=== PATIENT | male | born 1945 | race Caucasian/White ===

== ENCOUNTER 2020-08-31 12:47 | Outpatient (CLI) | payer BC, SELFPAY ==
--- NOTE | 2020-08-31 13:18 | XR_ITS ---
WS: [id number] CHEST 2 VIEWS HISTORY: BILATERAL LEG EDEMA/AORTIC VALVE STENOSIS COMPARISON: 01/26/2015 Lungs: Mild hyperexpansion. Diffuse interstitial thickening over both lungs has progressed since the prior study. Biapical pleural thickening and scarring is stable. Focal area of atelectasis at the RIG HT costophrenic angle. Cardiac size: Normal. Mediastinum/Aorta: Moderate atherosclerosis aorta. Bones: Severe osteopenia. Thoracolumbar scoliosis. Significant increase in the kyphosis centered at t he thoracolumbar junction. Favor there are probably osteoporotic compression fractures but distinctio n of the vertebral bodies is very limited due to osteoporosis. XR/XR chest 2V* [id number] IMPRESSION: 1. Progression of interstitial thickening is probably related to mild amount o f fluid overload or progression of interstitial lung disease since 2014. 2. Subsegmental atelectasis or scar at the RIGHT costophrenic angle. 3. Severe osteopenia with compression fractures and thoracolumbar scoliosis.
[2020-08-31 13:56] LABS: Basophils # 0.1 10^3/uL (0.0-0.1); Basophils % 0.5 %; Eosinophils # 0.1 10^3/uL (0.0-0.8); Eosinophils % 0.6 %; Hematocrit 40.2 % (42.0-52.0); Hemoglobin 12.4 g/dL (11.7-16.6); Lymphocytes # 1.2 10^3/uL (0.8-4.8); Lymphocytes % 12.5 %; Mean Corpuscular HGB Conc 30.8 g/dL (30.0-36.0); Mean Corpuscular Hemoglobin 28.6 pg (28.0-34.0); Mean Corpuscular Volume 92.8 fL (80-94); Mean Platelet Volume 10.6 fL (7.4-10.4); Monocytes # 0.7 10^3/uL (0.2-0.9); Monocytes % 7.5 %; Neutrophils # 7.57 10^3/uL (1.8-7.7); Neutrophils % 78.6 %; Nucleated Red Blood Cells % 0 %; Platelet Count 239 10^3/cmm (130-400); Red Blood Count 4.33 10^6/uL (4.1-5.3); Red Cell Distribution Width 14.6 % (12.1-15.1); White Blood Count 9.6 10^3/uL (4.0-10.0)
[2020-08-31 14:25] LABS: Alanine Aminotransferase 12 U/L (0-41); Albumin Level 3.6 g/dL (3.5-5.2); Alkaline Phosphatase 145 IU/L (40-130); Blood Urea Nitrogen 12 mg/dL (8-23); Carbon Dioxide 24 mmol/L (22-29); Chloride 97 mmol/L (98-107); Globulin 3.8 g/dL (1.3-4.6); Glucose 79 mg/dL (65-115); NT Pro B Type Natriuretic Pept 1867 pg/mL (0-450); Osmolality Calculated 271 mOsm/kg (285-295); Sodium 131 mmol/L (136-145); Total Bilirubin 0.5 mg/dL (0.15-1.2); Total Protein 7.4 g/dL (6.6-8.7)
[2020-08-31 14:29] LABS: Anion Gap 14.3 (5-19); Aspartate Amino Transferase 31 U/L (0-40); Potassium 4.3 mmol/L (3.5-5.1)
== END 2020-08-31 12:48 | disposition home or self-care (01) ==
LOC: RAD 12:56
PROVIDERS: PCP Family Medicine; Visit Provider Nurse Practitioner Family
DX: R60.0 Localized edema (principal); I35.0 Nonrheumatic aortic (valve) stenosis; M85.88 Other specified disorders of bone density and structure, other site; S22.000A Wedge compression fracture of unspecified thoracic vertebra, initial encounter for closed fracture; X58.XXXA Exposure to other specified factors, initial encounter; M41.85 Other forms of scoliosis, thoracolumbar region; J98.11 Atelectasis
CPT/HCPCS: 36415; 71046; 80053; 83880; 85025

== ENCOUNTER 2020-09-12 13:57 | Outpatient (CLI) | payer MEDICARE, SELFPAY ==
--- NOTE | 2020-09-12 14:09 | USCV_ITS ---
Sam Escamilla Age: 74 Gender: M : 1945 Exam Date: 09/12/2020 14:40 Ordering Phys: Deysi Luciano Technologist: Kelsey Rousseau Exam Location: [facility] – [place] Indication: aortic valve stenosis BP: / HR: 80 Rhythm: Sinus Technical Quality: MEASUREMENTS (Male / Female) Normal Values 2D ECHO LV Diastolic Diameter PLAX 3.8 cm 4.2 - 5.9 / 3.9 - 5.3 cm LV Systolic Diameter PLAX 2.3 cm LV Chamber Size 3.2 cm IVS Diastolic Thickness 1.4 cm 0.6 - 1.0 / 0.6 - 0.9 cm IVS Systolic Thickness 1.4 cm LVPW Diastolic Thickness 2.3 cm 0.6 - 1.0 / 0.6 - 0.9 cm LVPW Systolic Thickness 2.5 cm RV Chamber Size 3.9 cm LVOT Diameter 2.0 cm LV Ejection Fraction 2D Teich 72.3 % LV Ejection Fraction MOD 2C 65.3 % LV Ejection Fraction 2C AL 65.5 % LA Diameter 3.4 cm LA Width 4.3 cm LA Height 4.6 cm RA Width 3.9 cm RA Height 3.9 cm M-MODE LV Diastolic Diameter MM 4.8 cm 4.2 - 5.9 / 3.9 - 5.3 cm LV Systolic Diameter MM 3.0 cm LV Ejection Fraction MM Teich 66.9 % IVS Diastolic Thickness MM 0.8 cm 0.6 - 1.0 / 0.6 - 0.9 cm IVS Systolic Thickness MM 1.0 cm LVPW Diastolic Thickness MM 1.2 cm 0.6 - 1.0 / 0.6 - 0.9 cm LVPW Systolic Thickness MM 1.3 cm Aortic Annulus Diameter 2.7 cm LA Ao Ratio MM 1.2 MV E Point Septal Separation 1.1 cm DOPPLER AV Peak Velocity 433.0 cm/s LVOT Peak Velocity 132.0 cm/s AV Area Cont Eq vti 1.2 cm squared AV Area Cont Eq pk 1.0 cm squared MV Area PHT 3.1 cm squared Mitral E to A Ratio 0.7 MV E' Velocity 79.0 cm/s Mitral E to MV E' Ratio 27.0 Mitral E to LV E' Lateral Ratio 22.2 Mitral E to LV E' Septal Ratio 35.1 TR Peak Velocity 306.3 cm/s TR Peak Gradient 37.5 mmHg TV Peak E Velocity 63.0 cm/s Right Atrial Pressure 3.0 mmHg Pulmonary Artery Systolic Pressu 40.5 mmHg PV Peak Velocity 106.0 cm/s RV Acceleration Time 0.0 s RV Ejection Time 0.3 s RV AcT/ET 0.1 FINDINGS Left Ventricle Normal left ventricular size and systolic function, EF 60 %. Moderate left ventricular hypertrophy. No regional wall motion abnormalities. Grade I/IV diastolic dysfunction (abnormal relaxation filling pattern), normal to mildly elevated filling pressures. Right Ventricle The right ventricle is normal in size and function. Right Atrium The right atrium is normal in size. Left Atrium Mildly increased left atrial size. Mitral Valve Thickened mitral valve. Heavy mitral annular calcification.moderate mitral valve regurgitation. Aortic Valve Aortic valve stenosis. [id number]-[id number] aortic valve regurgitation.Severe aortic valve stenosis with a valve area of 1.0 cm squared. Peak velocity of 4.33 m/s with a peak gradient of seventy-five and a mean gradient of 34 mmHg Tricuspid Valve Mild tricuspid valve regurgitation. Pulmonic Valve Pulmonic valve not well visualized. Pericardium Normal pericardium without effusion. Aorta Normal ascending aorta dimension. CONCLUSIONS Severe aortic valve stenosis with a valve area of 1.0 cm squared.( Peak velocity of 4.33 m/s with a peak gradient of seventy-five and a mean gradient of 34 mmHg. ) Mild to moderate aortic regurgitation Normal left ventricular size and systolic function, EF 60 %. Moderate left ventricular hypertrophy. No regional wall motion abnormalities. Grade I/IV diastolic dysfunction (abnormal relaxation filling pattern), normal to mildly elevated filling pressures. Mildly increased left atrial size. Thickened mitral valve. Heavy mitral annular calcification. Moderate mitral valve regurgitation. Mild tricuspid valve regurgitation. Estimated pulmonary artery peak systolic pressure of 41 mmHg There is no pericardial effusion. There are no intracardiac masses. Compared to the study from 2015-07-05, there is worsening of the aortic valve stenosis Dr Chastity Finch MD FAC (Electronically Signed) Final Date: 14 September 2020 11:02 S
== END 2020-09-12 13:58 | disposition home or self-care (01) ==
LOC: US 14:00
PROVIDERS: PCP Family Medicine; Visit Provider Nurse Practitioner Family
DX: R60.9 Edema, unspecified (principal); I08.3 Combined rheumatic disorders of mitral, aortic and tricuspid valves
CPT/HCPCS: 93306

== ENCOUNTER → 2020-10-08 12:04 | Outpatient (BNVA) | payer MEDICARE, SELFPAY | PROVIDERS: PCP Family Medicine; Visit Provider Internal Medicine Cardiovascular Disease | DX: I50.33 Acute on chronic diastolic (congestive) heart failure (principal); R06.02 Shortness of breath; M79.89 Other specified soft tissue disorders; I35.0 Nonrheumatic aortic (valve) stenosis; I50.9 Heart failure, unspecified; I50.32 Chronic diastolic (congestive) heart failure; I10 Essential (primary) hypertension | CPT/HCPCS: 80048; 83880 ==

== ENCOUNTER 2020-11-08 07:53 | Outpatient (CLI) | payer MEDICARE, SELFPAY ==
--- NOTE | 2020-11-08 08:04 | ECG_ITS ---
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 Interpretive Statements NAME OF STUDY: LEXISCAN SESTAMIBI STRESS TEST INDICATION: [Shortness of Breath] Procedure: At the baseline, the blood pressure was 127/61 mmHg with a heart rate of 86 bpm. The electrocardiogram showed normal sinus rhythm, left bundle branch block. The Lexiscan was infused over a period of 20 seconds. A total of 0.4 mg of Lexiscan was infused. The stress phase was continued for a total of 5 minutes. Heart rate was at the end of stress phase was 101 bpm and a blood pressure of 160/75 mmHg. The EKG at the peak infusion revealed since normal sinus rhythm with no significant changes. Sestamibi was injected 20 seconds after the Lexiscan infusion. Blood pressure at the end of recovery phase was 157/86 mmHg with a heart rate of 102 bpm. Conclusion: 1. Normal EKG response to Lexiscan infusion 2. No Lexiscan induced chest pain or cardiac arrhythmia. 3. Normal blood pressure and heart rate response. 4. Sestamibi/sestamibi perfusion scan pending; see separate report. Electronically Signed On 11-17-2020 12:23:17 CDT by Tim Hoffman M.D. [id number]
--- NOTE | 2020-11-08 08:05 | NMCV_ITS ---
NM percy perf SPECT r/s* [id number] Sam Escamilla Age: 74 Gender: M : 1945 Exam Date: 11/08/2020 10:26 Ordering Phys: Chastity Finch MD ([email or web address]) Technologist: JYOTSNA Escalante Exam Location: [facility] Indications: SHORTNESS OF BREATH STRESS TEST Please see separate stress test report in [facility] for full findings IMAGE PROTOCOL Rest/Stress 1 Lexiscan Day Radiopharmaceutical Dose (mCi) Administration Site Administered by Rest: Tc-99m 10.9 IV JYOTSNA Escalante Sestamibi Stress:Tc-99m 32.2 IV JYOTSNA Robin Sestamibi Rest: 08-Nov-2020 60 Discovery 630 Stress: 08-Nov-2020 30 Discovery 630 0.4mg Lexiscan. Supine position only as patient was unable to lay prone. SPECT RESULTS Technical Quality: Excellent Raw Data Analysis: Normal Image Corrections: No attenuation or motion correction applied Summed Stress Score: 8 Summed Rest Score: 5 Summed Difference Score: 6 PERFUSION FINDINGS Moderate areas of decreases uptake in the mid and apical inferior, mid inferolateral, apical lateral, LV apex and apical septal segments significant reversibility was noted in the mid inferolateral and apical lateral regions. FUNCTIONAL RESULTS (calculated via Gated SPECT) Stress Image LV EF (%): 66 Stress EDV (mL):94 TID: 0.97 Stress ESV (mL):32 FUNCTIONAL FINDINGS: Segmental wall motion analysis revealing no gross wall motion normalities. IMPRESSIONS 1. Myocardial perfusion imaging revealing a small to moderate area of reversible defect in the mid inferolateral and apical lateral region, suggestive of ischemia in the distribution of the left circumflex artery. All areas of persistent decreased tracer uptake was noted in the inferior and apical regions, suggestive of myocardial scarring in the distribution of the right coronary artery/distal left anterior descending artery 2. Normal LV ejection fraction 66%. 3. No significant wall motion normalities. 4. Normal LV volume No similar previous studies are available for comparison Dr Chastity Finch MD [facility] (Electronically Signed) Final Date: 12 Nov 2020 10:33 S
[2020-11-08 08:28] VITALS: BMI 18.6
[2020-11-08] MEDS: regadenoson 0.4 Mg/5 ml Syringe IVP (10:54)
[2020-11-08] MEDS: aminophylline 25 mg/mL SDV 10 mL IVP (11:05)
[2020-11-08 12:43] VITALS: BP 157/86; PULSE 93
== END 2020-11-08 07:54 | disposition home or self-care (01) ==
LOC: CDL 07:56
PROVIDERS: PCP Family Medicine; Visit Provider Internal Medicine Cardiovascular Disease
DX: R07.9 Chest pain, unspecified (principal)
CPT/HCPCS: 78452; 93017; 96374; A9500; J0280; J2785

== ENCOUNTER → 2020-12-11 15:00 | Outpatient (BNVA) | payer MEDICARE, SELFPAY | PROVIDERS: PCP Family Medicine; Visit Provider Internal Medicine Cardiovascular Disease | DX: R06.02 Shortness of breath (principal); M79.89 Other specified soft tissue disorders; I50.33 Acute on chronic diastolic (congestive) heart failure; I50.32 Chronic diastolic (congestive) heart failure; I50.9 Heart failure, unspecified | CPT/HCPCS: 80048; 83880 ==

== ENCOUNTER → 2021-06-13 15:04 | Outpatient (BNVA) | payer MEDICARE, SELFPAY | PROVIDERS: PCP Family Medicine; Visit Provider Internal Medicine Cardiovascular Disease | DX: I50.33 Acute on chronic diastolic (congestive) heart failure (principal); I35.0 Nonrheumatic aortic (valve) stenosis; R06.02 Shortness of breath | CPT/HCPCS: 80048; 83880 ==

== ENCOUNTER → 2021-12-12 13:49 | Outpatient (BNVA) | payer MEDICARE, SELFPAY | PROVIDERS: PCP Family Medicine; Visit Provider Internal Medicine Cardiovascular Disease | DX: I11.0 Hypertensive heart disease with heart failure (principal); I50.32 Chronic diastolic (congestive) heart failure; I35.0 Nonrheumatic aortic (valve) stenosis; F17.210 Nicotine dependence, cigarettes, uncomplicated; M79.89 Other specified soft tissue disorders | CPT/HCPCS: 99214 ==

== ENCOUNTER → 2022-05-26 11:46 | Outpatient (BNVA) | payer MEDICARE, SELFPAY | PROVIDERS: PCP Family Medicine; Visit Provider Family Medicine | DX: Z51.81 Encounter for therapeutic drug level monitoring (principal); I10 Essential (primary) hypertension; Z00.00 Encounter for general adult medical examination without abnormal findings; I50.9 Heart failure, unspecified; I35.0 Nonrheumatic aortic (valve) stenosis; Z13.220 Encounter for screening for lipoid disorders; R35.0 Frequency of micturition; Z12.5 Encounter for screening for malignant neoplasm of prostate | CPT/HCPCS: 80053; 80061; 85025; G0103 ==

== ENCOUNTER → 2022-06-12 13:28 | Outpatient (BNVA) | payer MEDICARE, SELFPAY | PROVIDERS: PCP Family Medicine; Visit Provider Nurse Practitioner Family | DX: I11.0 Hypertensive heart disease with heart failure (principal); I50.32 Chronic diastolic (congestive) heart failure; I35.0 Nonrheumatic aortic (valve) stenosis; F17.210 Nicotine dependence, cigarettes, uncomplicated | CPT/HCPCS: 99214 ==

== ENCOUNTER → 2022-12-30 10:56 | Outpatient (BNVA) | payer MEDICARE, SELFPAY | PROVIDERS: PCP Family Medicine; Visit Provider Specialist | DX: I10 Essential (primary) hypertension (principal); I35.0 Nonrheumatic aortic (valve) stenosis; F17.210 Nicotine dependence, cigarettes, uncomplicated | CPT/HCPCS: 99214 ==

== ENCOUNTER 2023-01-27 14:43 | Outpatient (CLI) | payer MEDICARE, SELFPAY ==
--- NOTE | 2023-01-27 15:15 | USCV_ITS ---
Sam Escamilla Age: 77 Gender: M : 1945 Exam Date: 01/27/2023 15:08 Ordering Phys: Mirela Sal MD ([email or web address]) Technologist: Exam Location: [facility] [place] Indication: aortic stenosis BP: 120 / 73 HR: 84 Rhythm: Sinus Technical Quality: Adequate MEASUREMENTS (Male / Female) Normal Values 2D ECHO LV Diastolic Diameter PLAX 4.9 cm 4.2 - 5.9 / 3.9 - 5.3 cm LV Systolic Diameter PLAX 2.5 cm IVS Diastolic Thickness 1.1 cm 0.6 - 1.0 / 0.6 - 0.9 cm IVS Systolic Thickness 2.0 cm LVPW Diastolic Thickness 1.1 cm 0.6 - 1.0 / 0.6 - 0.9 cm LVPW Systolic Thickness 1.5 cm LVOT Diameter 2.0 cm LV Ejection Fraction 2D Teich 80.3 % LV Ejection Fraction MOD 2C 72.8 % LV Ejection Fraction 2C AL 72.8 % LA Diameter 4.3 cm M-MODE Aortic Annulus Diameter 3.0 cm LA Ao Ratio MM 1.8 DOPPLER AV Peak Velocity 464.3 cm/s LVOT Peak Velocity 103.0 cm/s AV Area Cont Eq vti 0.7 cm squared AV Area Cont Eq pk 0.7 cm squared MV Area PHT 5.1 cm squared Mitral E to A Ratio 0.8 MV E' Velocity 90.5 cm/s Mitral E to MV E' Ratio 27.0 Mitral E to LV E' Lateral Ratio 20.8 Mitral E to LV E' Septal Ratio 38.4 TR Peak Velocity 214.0 cm/s TR Peak Gradient 18.3 mmHg TV Peak E Velocity 95.0 cm/s Right Atrial Pressure 3.0 mmHg Pulmonary Artery Systolic Pressu 21.3 mmHg RV Acceleration Time 0.1 s FINDINGS Left Ventricle Normal left ventricular size and systolic function, EF 73 %. Moderate left ventricular hypertrophy. No regional wall motion abnormalities. Grade I/IV diastolic dysfunction (abnormal relaxation filling pattern), normal to mildly elevated filling pressures. Right Ventricle The right ventricle is normal in size and function. Right Atrium The right atrium is normal in size. Left Atrium Mildly increased left atrial size. Mitral Valve Heavy mitral annular calcification Aortic Valve Moderate aortic valve calcification. evere aortic valve stenosis, mean gradient 44.8 mmHg, ZOE 0.66 cm squared. Mild aortic valve regurgitation. Tricuspid Valve Trace tricuspid valve regurgitation. Pulmonic Valve Thickened pulmonic valve. Pericardium Normal pericardium without effusion. Aorta Normal ascending aorta dimension. IVC Inferior vena cava not visualized. CONCLUSIONS Normal left ventricular size and systolic function, EF 73 %. Moderate left ventricular hypertrophy. No regional wall motion abnormalities. Grade I/IV diastolic dysfunction (abnormal relaxation filling pattern), normal to mildly elevated filling pressures. Severe aortic valve stenosis, mean gradient 44.8 mmHg, ZOE 0.66 cm squared. Mild aortic valve regurgitation. Moderate to heavy aortic valve calcification. Heavy mitral annular calcification Mildly increased left atrial size. Trace tricuspid valve regurgitation. Thickened pulmonic valve. There is no pericardial effusion. Compared to the study from 09/12/2020, there is worsening of the aortic valve stenosis Dr Chastity Finch MD [facility] (Electronically Signed) Final Date: 28 January 2023 21:56 S
== END 2023-01-27 14:44 | disposition home or self-care (01) ==
LOC: RAD 14:44
PROVIDERS: PCP Family Medicine; Visit Provider Specialist
DX: I10 Essential (primary) hypertension (principal); I08.3 Combined rheumatic disorders of mitral, aortic and tricuspid valves
CPT/HCPCS: 93306

== ENCOUNTER 2023-05-24 09:57 | Emergency (ER) | payer MEDICARE, SELFPAY ==
--- NOTE | 2023-05-24 09:59 | XRR_ITS ---
PROCEDURE INFORMATION: Exam: XR Left Knee Exam date and time: 05/24/2023 10:17 AM Age: 77 years old Clinical indication: Injury or trauma; Fall; Blunt trauma; Knee; Left TECHNIQUE: Imaging protocol: Radiologic exam of the left knee. Views: 3 views. COMPARISON: No relevant prior studies available. FINDINGS: Bones/joints: Alignment is normal. Joint spaces are preserved. No acute fracture. No joint effusion. Bones are diffusely osteopenic. Soft tissues: Visible soft tissues are unremarkable. Vasculature: Vascular calcification is present. XR/XR knee LT 3V* [id number] IMPRESSION: No acute findings.
--- NOTE | 2023-05-24 09:59 | XRR_ITS ---
PROCEDURE INFORMATION: Exam: XR Right Ankle Exam date and time: 05/24/2023 10:15 AM Age: 77 years old Clinical indication: Injury or trauma; Fall; Blunt trauma; Ankle; Right TECHNIQUE: Imaging protocol: Radiologic exam of the right ankle. Views: 3 or more views. COMPARISON: No relevant prior studies available. FINDINGS: Bones/joints: Alignment is normal. Joint spaces are preserved. No acute fracture. Bones are diffusely osteopenic. Soft tissues: Visible soft tissues are unremarkable. Vasculature: Vascular calcification is present. XR/XR ankle RT min 3V* [id number] IMPRESSION: No acute fracture.
[2023-05-24 10:05] VITALS: BP 145/53; PULSE 91; RESP 17; TEMP 36.9; O2SAT 96; BMI 21.2
--- NOTE | 2023-05-24 10:28 | XRR_ITS ---
PROCEDURE INFORMATION: Exam: XR Right Foot Exam date and time: 05/24/2023 10:30 AM Age: 77 years old Clinical indication: Injury or trauma; Fall; Blunt trauma; Foot; Left TECHNIQUE: Imaging protocol: Radiologic exam of the right foot. Views: 3 or more views. COMPARISON: CR (LOW EXM, ) 05/24/2023 10:15 AM FINDINGS: Bones/joints: Bones are diffusely osteopenic. Alignment is normal. Joint spaces are preserved. No acute fracture. Soft tissues: Visible soft tissues are unremarkable. Vasculature: Vascular calcification is present. XR/XR foot RT min 3V* [id number] IMPRESSION: No acute findings.
--- NOTE | 2023-05-24 10:28 | W.ED.EXTPRO ---
HPI - Extremity Problem General: Chief complaint: Extremity Injury, Lower Stated complaint: fall, right ankle left knee Time Seen by Provider: 05/24/23 10:10 Source: patient Mode of arrival: ambulatory Limitations: no limitations History of Present Illness: 77-year-old male states he had a ground-level fall on Thursday. He states he has had right ankle and foot pain along with left knee pain since the fall. States he had a hard time bearing weight on that right foot. Pain is laterally patient denies any other injuries. Associated symptoms: Deny chest pain, fever(s) or rash Review of Systems Const: Denies: fever(s), chills, body aches or change in appetite ENMT: Denies: throat pain or dental pain Card: Denies: chest pain Resp: Denies: dyspnea GI: Denies: abdominal pain, nausea, vomiting or diarrhea Musc: Reports: extremity pain; Denies: neck pain or back pain Skin/Breast: Denies: rash Neuro: Denies: headache(s) PFSH ED PFSH: Medical History Aortic stenosis Grade I diastolic dysfunction History of hypertension Hx of cardiac murmur Peripheral edema Skin cancer Surgical History No pertinent past surgical history Family History Sister CAD (coronary artery disease) Brother CAD (coronary artery disease) Diabetes Stroke Father Cancer Mother CAD (coronary artery disease) Denies family history of Clotting disorder Dementia Chronic kidney disease (CKD) Suicide Anesthesia complication Bleeding disorder Lung disease Social History Smoking and tobacco/nicotine status: current every day tobacco/nicotine user cigarettes Packs smoked per day: 1 Alcohol intake: never Substance/Drug Use: never Physical Exam Const: COMMON NORMALS: no acute distress, patient oriented x3 and healthy appearing HENMT: COMMON NORMALS: normocephalic and atraumatic HEAD & SCALP: normocephalic and atraumatic Neck/C-Spine: COMMON NORMALS: full ROM and supple Chest: COMMONS NORMALS: normal inspection of the chest Resp: COMMON NORMALS: normal respiratory effort Extremity: COMMON NORMALS: full ROM NARRATIVE EXTREMITY EXAM: Some tenderness over right lateral ankle and foot with contusion left knee slightly tender but has full range of motion and minimal pain with range of motion Neuro: COMMON NORMALS: patient oriented x3, moves all extremities and no focal motor deficits Psych: COMMON NORMALS: mental status grossly normal, Normal thought process present and cooperative THOUGHT PROCESS: Normal thought process present Skin: COMMON NORMALS: no rashes or lesions noted and no wounds GENERAL SKIN EXAM: no rashes or lesions noted Course Vital Signs: Vital signs: Vital Signs Temperature 98.4 F 05/24/23 10:05 Pulse Rate 91 05/24/23 10:05 Respiratory Rate 17 05/24/23 10:05 Blood Pressure 145/53 05/24/23 10:05 Pulse Oximetry 96 05/24/23 10:05 Oxygen Delivery Me thod Room Air 05/24/23 10:05 MDM - Extremity (Nontraumatic) Medical Decision Making Patient presents here with a right foot and ankle sprain from a fall his x-rays show no fractures he is well-appearing here he is stable for discharge he is to follow-up with PCP and return if worsening. Medical Records I reviewed the patient's medical records. Lab Data Radiology Impressions Ankle X-Ray 05/24/23 09:59 IMPRESSION: No acute fracture. Knee X-Ray 05/24/23 09:59 IMPRESSION: No acute findings. Foot X-Ray 05/24/23 10:28 IMPRESSION: No acute findings. All radiology interpretation(s) finalized by discharge Discharge Plan Discharge Patient Disposition: Home Clinical Impression: Ankle sprain and strain Condition: Stable Prescriptions: New Naprosyn 500 mg tablet 500 mg PO BID PRN (Reason: pain) Qty: 20 0RF No Action (DME) Wheels with 4 wheels and a seat See Rx Instructions .Route .MEDSUPPLY Qty: 1 0RF Rx Instructions: As directed potassium chloride 10 mEq tablet extended release 10 meq PO DAILY Qty: 30 5RF lisinopril 40 mg tablet 40 mg PO DAILY Qty: 90 3RF furosemide [Lasix] 20 mg tablet 20 mg PO DAILY Qty: 100 2RF Rx Instructions: *May take additional dose if more short of breath as needed Discharge Orders: Discharge ED (Routine); Ordered 05/24/23 Ordered By: Adelita Fallon Referrals: Andres Jordan MD [Primary Care Provider] - 1-3 days Discharge Diet: Advance as tolerated Discharge Activity: Resume usual activity Patient Instructions: Ankle Sprain (ED) Coding Level of Care Code ED 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
== END 2023-05-24 11:25 | disposition home or self-care (01) ==
PROVIDERS: Emergency Provider Emergency Medicine; PCP Family Medicine
DX: S93.401A Sprain of unspecified ligament of right ankle, initial encounter (principal); S96.911A Strain of unspecified muscle and tendon at ankle and foot level, right foot, initial encounter; F17.210 Nicotine dependence, cigarettes, uncomplicated; I10 Essential (primary) hypertension; W18.30XA Fall on same level, unspecified, initial encounter
CPT/HCPCS: 73562; 73610; 73630; 99284; E0114

== ENCOUNTER → 2023-05-31 13:00 | Outpatient (BNVA) | payer MEDICARE, SELFPAY | PROVIDERS: PCP Family Medicine; Visit Provider Emergency Medicine | DX: R39.9 Unspecified symptoms and signs involving the genitourinary system (principal); N39.0 Urinary tract infection, site not specified | CPT/HCPCS: 81000; 87077; 87086; 87184 ==

== ENCOUNTER → 2023-06-16 09:38 | Outpatient (BNVA) | payer MEDICARE, SELFPAY | PROVIDERS: PCP Family Medicine; Visit Provider Internal Medicine Cardiovascular Disease | DX: I35.0 Nonrheumatic aortic (valve) stenosis (principal); I11.0 Hypertensive heart disease with heart failure; I50.32 Chronic diastolic (congestive) heart failure; M79.89 Other specified soft tissue disorders; F17.210 Nicotine dependence, cigarettes, uncomplicated | CPT/HCPCS: 99214 ==

== ENCOUNTER → 2023-11-17 14:02 | Outpatient (BNVA) | payer MEDICARE, SELFPAY | PROVIDERS: PCP Family Medicine; Visit Provider Family Medicine | DX: Z51.81 Encounter for therapeutic drug level monitoring (principal) | CPT/HCPCS: 80053; 85025 ==

== ENCOUNTER 2023-11-23 12:41 | Inpatient (IN) | payer MEDICARE, SELFPAY ==
[2023-11-23] VITALS (17 sets, daily range): BP systolic 131–165; BP diastolic 56–109; PULSE 70–108; RESP 15–28; TEMP 36.3–36.8; O2SAT 18–100
--- NOTE | 2023-11-23 12:44 | XRR_ITS ---
PROCEDURE INFORMATION: Exam: XR Chest Exam date and time: 11/23/2023 12:52 PM Age: 77 years old Clinical indication: Shortness of breath; Additional info: SOB TECHNIQUE: Imaging protocol: Radiologic exam of the chest. Views: 1 view. COMPARISON: CR XR chest 2V* [id number] 08/31/2020 1:26 PM FINDINGS: Lungs: Low lung volumes with bibasilar atelectasis and/or airspace disease. Findings superimposed on underlying diffuse interstitial coarsening and borderline pulmonary vascular congestion which also accentuated in the setting. Pleural spaces: No pleural effusion or pneumothorax. Heart/Mediastinum: Cardiomediastinal contours accentuated by low lung volumes and AP technique. Bones/joints: No significant pathology. Other findings: Probable small right effusion with no definite left effusion seen. XR/XR chest 1V portable [id number] IMPRESSION: Low lung volumes with bibasilar atelectasis and/or airspace disease and possible small right effusion. PA and lateral projections recommended for further assessment if clinically feasible.
--- NOTE | 2023-11-23 13:20 | ECG_ITS ---
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 Measurements Intervals [place] Rate: 88 P: 84 MN: 212 QRS: 56 QRSD: 166 T: 110 QT: 441 QTc: 534 Interpretive Statements SINUS RHYTHM WITH FIRST DEGREE AV BLOCK POSSIBLE LEFT ATRIAL ENLARGEMENT [-0.1mV P-WAVE IN V1/V2] LEFT BUNDLE BRANCH BLOCK [120+ ms QRS DURATION, 80+ ms Q/S IN V1/V2, 85+ ms R IN I/aVL/V5/V6] No previous ECG available for comparison Electronically Signed On 11-23-2023 17:57:43 CDT by Chastity Finch M.D. [id number]
[2023-11-23 14:27] LABS: Basophils % 0.3 %; Eosinophils % 0.3 %; Lymphocytes # 1.1 10^3/uL (0.8-4.8); Lymphocytes % 8.9 %; Mean Corpuscular HGB Conc 31.2 g/dL (30-55); Mean Corpuscular Hemoglobin 28.6 pg (27-33); Mean Corpuscular Volume 91.5 fl (82-101); Mean Platelet Volume 10.9 fL (7.4-10.4); Monocytes # 0.7 10^3/uL (0.2-0.9); Monocytes % 5.5 %; Neutrophils % 84.6 %; Nucleated Red Blood Cells % 0 %; Platelet Count 185 10^3/cmm (157-399); Red Blood Count 4.48 10^6/uL (3.85-5.65); Red Cell Distribution Width 15.3 % (12.1-15.1); White Blood Count 11.93 10^3/uL (3.29-11.43)
[2023-11-23 14:51] LABS: INR 1.07 (0.8-1.2)
[2023-11-23 14:58] LABS: Alanine Aminotransferase 14 U/L (0-41); Albumin Level 3.5 g/dL (3.5-5.2); Alkaline Phosphatase 135 U/L (40-130); Anion Gap 11.6 (5-19); Aspartate Amino Transferase 24 U/L (0-40); Blood Urea Nitrogen 16 mg/dL (8-23); Calcium 8.7 mg/dL (8.5-10.5); Carbon Dioxide 35 mmol/L (22-29); Chloride 96 mmol/L (98-107); Creatinine Clr Calc Pharmacy 48.0364; Globulin 3.5 g/dL (1.3-4.6); Glucose 125 mg/dL (65-115); NT Pro B Type Natriuretic Pept 5943 pg/mL (0-450); Osmolality Calculated 293 mOsm/kg (285-295); Sodium 140 mmol/L (136-145); Total Bilirubin 0.7 mg/dL (0.15-1.2)
[2023-11-23 15:00] LABS: Potassium 2.6 mmol/L (3.5-5.1)
--- NOTE | 2023-11-23 15:39 | XRR_ITS ---
PROCEDURE INFORMATION: Exam: XR Chest Exam date and time: 11/23/2023 3:50 PM Age: 77 years old Clinical indication: Shortness of breath; Additional info: SOB TECHNIQUE: Imaging protocol: Radiologic exam of the chest. Views: 2 views. COMPARISON: CR XR chest 1V portable [id number] 11/23/2023 12:52 PM FINDINGS: Lungs: Compared with the earlier in the same day, low lung volumes again noted. Areas of basilar atelectasis and/or airspace disease again noted. There is mild pulmonary vascular congestion. Pleural spaces: Small bilateral pleural effusions now more clearly visualized. Heart/Mediastinum: Heart is enlarged though accentuated by incomplete pulmonary expansion. Moderate hiatal hernia. Bones/joints: Bones are osteopenic and there are numerous thoracolumbar vertebral body compression fractures with assessment limited by technique and osteopenia. XR/XR chest 2V* [id number] IMPRESSION: 1. Low lung volumes findings suggest at least partial component of congestive failure and/or fluid overload accentuated by incomplete pulmonary expansion. Additional nonspecific areas of bibasilar atelectasis and/or airspace disease. 2. Limited assessment of multilevel thoracolumbar vertebral body compression fractures given technique and osteopenia. CT or MRI could be performed for more detailed assessment if clinically warranted.
--- NOTE | 2023-11-23 15:44 | ED_ITS ---
HPI - General Adult 2 General: Chief complaint: General Medical Stated complaint: swelling leg, sob Time Seen by Provider: 11/23/23 15:37 Source: patient Mode of arrival: ambulatory Limitations: no limitations History of Present Illness: W 7-year-old male has history of congestive heart failure he states he had increased edema to his lower extremities he states that his provider did increase his Lasix to 40 mg from 26 been taking but still had fluid buildup denies any fever denies any chest pain denies any severe shortness of breath. Associated symptoms: Deny chest pain, dyspnea, headache(s), nausea, rash or vomiting Review of Systems 2 Const: Denies: fever(s), chills, body aches or change in appetite ENMT: Denies: throat pain or dental pain Card: Denies: chest pain Resp: Denies: dyspnea GI: Denies: abdominal pain, nausea, vomiting or diarrhea Musc: Reports: extremity swelling; Denies: neck pain or back pain Skin/Breast: Denies: rash Neuro: Denies: headache(s) PFSH ED 2 PFSH: Medical History Peripheral edema Aortic stenosis Severe - Patient has declined valve replacement History of hypertension Grade I diastolic dysfunction Hx of cardiac murmur Skin cancer Surgical History No pertinent past surgical history Family History Sister CAD (coronary artery disease) Brother CAD (coronary artery disease) Diabetes Stroke Father Cancer Mother CAD (coronary artery disease) Denies family history of Clotting disorder Dementia Chronic kidney disease (CKD) Suicide Anesthesia complication Bleeding disorder Lung disease Social History Smoking and tobacco/nicotine status: current every day tobacco/nicotine user cigarettes Packs smoked per day: 1 Alcohol intake: never Substance/Drug Use: never Physical Exam 2 Const: COMMON NORMALS: patient oriented x3 HENMT: COMMON NORMALS: normocephalic and atraumatic HEAD & SCALP: n ormocephalic and atraumatic Eye: COMMON NORMALS: Equal, round and reactive pupils present and EOMs intact bilaterally PUPIL: Yes Equal, round and reactive pupils present Neck/C-Spine: COMMON NORMALS: full ROM and supple Chest: COMMONS NORMALS: normal inspection of the chest and normal palpation of entire chest wall Resp: COMMON NORMALS: normal respiratory effort, No retractions, No use of accessory muscles and clear to auscultation bilaterally AUSCULTATION: clear to auscultation bilaterally Cardio: COMMON NORMALS: regular rate, regular rhythm and No murmurs present (Cardio) RATE: regular rate RHYTHM: regular rhythm GI: COMMON NORMALS: Normal to inspection, nondistended, normoactive bowel sounds present, Soft to palpation, non-tender and no masses PALPATION: Yes Soft to palpation Extremity: COMMON NORMALS: full ROM NARRATIVE EXTREMITY EXAM: 2+ edema to bilateral ext Neuro: COMMON NORMALS: patient oriented x3, moves all extremities and no focal motor deficits Psych: COMMON NORMALS: mental status grossly normal, Normal thought process present and cooperative THOUGHT PROCESS: Normal thought process present Skin: COMMON NORMALS: no rashes or lesions noted and no wounds GENERAL SKIN EXAM: no rashes or lesions noted Course 2 Vital Signs: Vital signs: Vital Signs Temperature 97.3 F L 11/23/23 13:14 Pulse Rate 95 11/23/23 15:57 Respiratory Rate 16 11/23/23 15:57 Blood Pressure 131/102 11/23/23 15:57 Pulse Oximetry 100 11/23/23 15:57 Oxygen Delivery Me thod Room Air 11/23/23 15:57 MDM - General Adult Medical Decision Making Patient presents here with history of CHF with increased lower extremity edema he does have an elevated BNP here from his baseline he is hypokalemic as well likely from the increase in his Lasix dose I spoke to the hospitalist will admit for his CHF and hypokalemia Lab Data 11/23/23 14:20 11/23/23 14:20 Radiology Impressions Chest X-Ray 11/23/23 15:39 IMPRESSION: 1. Low lung volumes findings suggest at least partial component of congestive failure and/or fluid overload accentuated by incomplete pulmonary expansion. Additional nonspecific areas of bibasilar atelectasis and/or airspace disease. 2. Limited assessment of multilevel thoracolumbar vertebral body compression fractures given technique and osteopenia. CT or MRI could be performed for more detailed assessment if clinically warranted. Laboratory Results WBC 11.93 10^3/uL (3.29-11.43) H 11/23/23 14:20 RBC 4.48 10^6/uL (3.85-5.65) 11/23/23 14:20 Hgb 12.80 g/dL (11.27-16.99) 11/23/23 14:20 Hct 41.0 % (37-53) 11/23/23 14:20 MCV 91.5 fl (82-101) 11/23/23 14:20 MCH 28.6 pg (27-33) 11/23/23 14:20 MCHC 31.2 g/dL (30-55) 11/23/23 14:20 RDW 15.3 % (12.1-15.1) H 11/23/23 14:20 Plt Count 185 10^3/cmm (157-399) 11/23/23 14:20 MPV 10.9 fL (7.4-10.4) H 11/23/23 14:20 Neut % (Auto) 84.6 % 11/23/23 14:20 Lymph % (Auto) 8.9 % 11/23/23 14:20 [place] % (Auto) 5.5 % 11/23/23 14:20 Eos % (Auto) 0.3 % 11/23/23 14:20 Baso % (Auto) 0.3 % 11/23/23 14:20 Neut # (Auto) 10.10 10^3/uL (1.8-7.7) H 11/23/23 14:20 Lymph # (Auto) 1.1 10^3/uL (0.8-4.8) 11/23/23 14:20 [place] # (Auto) 0.7 10^3/uL (0.2-0.9) 11/23/23 14:20 Eos # (Auto) 0.0 10^3/uL (0.0-0.8) 11/23/23 14:20 Baso # (Auto) 0.0 10^3/uL (0.0-0.1) 11/23/23 14:20 Nucleated RBC % (auto) 0 % 11/23/23 14:20 Nucleated RBCs # 0.0 /100WBC 11/23/23 14:20 PT 14.20 SECONDS (12.1-14.9) 11/23/23 14:20 INR 1.07 (0.8-1.2) 11/23/23 14:20 Sodium 140 mmol/L (136-145) 11/23/23 14:20 Potassium 2.6 mmol/L (3.5-5.1) L* 11/23/23 14:20 Chloride 96 mmol/L (98-107) L 11/23/23 14:20 Carbon Dioxide 35 mmol/L (22-29) H 11/23/23 14:20 Anion Gap 11.6 (5-19) 11/23/23 14:20 BUN 16 mg/dL (8-23) 11/23/23 14:20 Creatinine 0.7 mg/dL (0.7-1.2) 11/23/23 14:20 GFR Calculation Not Reportable 11/23/23 14:20 Glucose 125 mg/dL (65-115) H 11/23/23 14:20 Calculated Osmolality 293 mOsm/kg (285-295) 11/23/23 14:20 Calcium 8.7 mg/dL (8.5-10.5) 11/23/23 14:20 Magnesium 2.0 mg/dL (1.7-2.3) 11/23/23 14:20 Total Bilirubin 0.7 mg/dL (0.15-1.2) 11/23/23 14:20 AST 24 U/L (0-40) 11/23/23 14:20 ALT 14 U/L (0-41) 11/23/23 14:20 Alkaline Phosphatase 135 U/L (40-130) H 11/23/23 14:20 NT-Pro-B Natriuret Pep 5943 pg/mL (0-450) H 11/23/23 14:20 Total Protein 7.0 g/dL (6.6-8.7) 11/23/23 14:20 Albumin 3.5 g/dL (3.5-5.2) 11/23/23 14:20 Globulin 3.5 g/dL (1.3-4.6) 11/23/23 14:20 All radiology interpretation(s) finalized by discharge Discharge Plan Discharge Patient Disposition: Admitted As Inpatient Clinical Impression: Leg swelling, CHF (congestive heart failure), Hypokalemia Condition: Stable Prescriptions: No Action furosemide 40 mg tablet See Rx Instructions .ROUTE .COMPLEX Qty: 90 3RF Dose Instruction: TAKE 1 TABLET BY MOUTH DAILY *MAY TAKE ADDITIONAL DOSE IF MORE SHORT OF BREATH NEEDED Rx Instructions: TAKE 1 TABLET BY MOUTH DAILY *MAY TAKE ADDITIONAL DOSE IF MORE SHORT OF BREATH NEEDED (DME) Wheels with 4 wheels and a seat See Rx Instructions .Route .MEDSUPPLY Qty: 1 0RF Rx Instructions: As directed potassium chloride 10 mEq tablet extended release 10 meq PO DAILY Qty: 30 5RF lisinopril 40 mg tablet See Rx Instructions .ROUTE .COMPLEX Qty: 90 3RF Dose Instruction: TAKE 1 TABLET BY MOUTH EVERY DAY Rx Instructions: TAKE 1 TABLET BY MOUTH EVERY DAY Naprosyn 500 mg tablet 500 mg PO BID PRN (Reason: pain) Qty: 20 0RF Referrals: Andres Jordan MD [Primary Care Provider] - Coding Level of Care Code ED Smocker for Korina Miller
[2023-11-23] MEDS: potassium chloride ER 20 mEq Tablet 60 MEQ PO (16:04)
[2023-11-23] MEDS: nicotine 21 mg Patch 1 PATCH TRANSDERMA (16:05)
[2023-11-23] MEDS: potassium chloride ER 20 mEq Tablet 80 MEQ PO (17:33)
--- NOTE | 2023-11-23 17:39 | P.HP_ITS ---
Providers/Chief Complaint 2 Primary Care Provider: Andres Jordan MD Chief Complaint: swelling leg, sob History of Present Illness Sam Escamilla is a 77 year old male with past medical history of hypertension, severe aortic stenosis, diastolic heart failure presented to the ER because of worsening swelling in his lower limbs along with weakness and difficulty in breathing associated with orthopnea increasing over the last 2 weeks at home. As per the patient his diuretic was doubled to 40 mg daily as per his primary care provider within the last 1 week without any help. In the ER he was found to have potassium of 2.6 hence decision was made to admit. Examination patient sitting up in bed with difficulty in laying down because of difficulty in breathing maintain saturation reported oxygen supplementation. Denies any nausea vomiting, headache. Does complain of mild chest discomfort around 3 to 4 weeks ago. Denies any difficulty in appetite, palpitations. Review of Systems 2 General: Reports: 10 or more systems reviewed and unremarkable except in HPI and below Const: Denies: fever(s), chills, body aches, change in appetite, change in weight, malaise, night sweats, diaphoresis, change in sleep pattern, daytime sleepiness or snoring Eyes: Denies: change in vision, blurry vision, photophobia, eye discomfort or eye discharge ENMT: Denies: throat pain, enlarged tonsils, hoarseness, mouth pain, oral sores, dry mouth, tinnitus, nasal congestion or post nasal drip Card: Denies: chest pain, palpitations, irregular heart rhythm, edema, swelling of feet/ankles, lightheadedness, syncope, pre-syncope, dyspnea on exertion, orthopnea, leg pain with exertion or acrocyanosis Resp: Denies: dyspnea, productive cough, non-productive cough, wheezing, stridor, pain on inspiration, change in phlegm color, hemoptysis or chest congestion GI: Denies: abdominal pain, nausea, vomiting, hematemesis, coffee ground emesis, dysphagia, heartburn, diarrhea, constipation, bloating, GI cramping, change in bowel habits, pain on defecation, hematochezia or melena : Denies: flank pain, difficulty urinating, dysuria, urinary frequency, urinary urgency, urinary hesitancy, urinary dribbling, difficulty starting urination, change in urine stream, nocturia or hematuria Musc: Denies: neck pain, back pain, extremity pain, joint pain, joint swelling, joint redness, joint stiffness or limited range of motion Neuro: Denies: headache(s), numbness in extremities, weakness in extremities, sensory changes, lack of coordination, difficulty walking, frequent falls, dizziness, vertigo, confusion, Slurred speech present, difficulty communicating thoughts or seizure-like activity Psych: Denies: anxiety, depression, mood swings, panic attacks, hopelessness or irritability Endo: Denies: polyuria, polydipsia, tired all the time, cold intolerance, excessive sweating, flushing or heat intolerance [place]/Lymph: Denies: easy bruising or easy bleeding All/Imm: Denies: tongue swelling, facial swelling or acute wheezing Medications/Allergies Home Medications Medication Instructions Recorded Confirmed Last Taken Type potassium chloride 10 mEq 10 meq PO DAILY #30 tabs 10/09/20 11/17/23 Unknown Rx tablet,extended release Wheels with 4 wheels and a seat #1 ea 05/26/22 11/17/23 Unknown Rx naproxen 500 mg tablet (Naprosyn) 500 mg PO BID PRN pain #20 tabs 05/24/23 11/17/23 Unknown Rx lisinopril 40 mg tablet See Rx Instructions .Route 09/30/23 11/17/23 Unknown Rx .COMPLEX #90 tabs furosemide 40 mg tablet See Rx Instructions .Route 11/17/23 11/17/23 Unknown Rx .COMPLEX #90 tabs Allergies Allergy/AdvReac Type Severity Reaction Status Date / Time No Known Allergies Allergy Verified 06/16/23 10:05 PFSH Acute 2 PFSH: Medical History Peripheral edema Aortic stenosis Severe - Patient has declined valve replacement History of hypertension Grade I diastolic dysfunction Hx of cardiac murmur Skin cancer Surgical History No pertinent past surgical history Family History Sister CAD (coronary artery disease) Brother CAD (coronary artery disease) Diabetes Stroke Father Cancer Mother CAD (coronary artery disease) Denies family history of Clotting disorder Dementia Chronic kidney disease (CKD) Suicide Anesthesia complication Bleeding disorder Lung disease Social History Smoking and tobacco/nicotine status: current every day tobacco/nicotine user cigarettes Packs smoked per day: 1 Alcohol intake: never Substance/Drug Use: never Vitals/I&O/Wt Last Vital Signs Temp 97.3 F L 11/23/23 13:14 Pulse 91 11/23/23 17:00 Resp 16 11/23/23 15:57 BP 136/76 11/23/23 17:00 Pulse Ox 93 11/23/23 17:00 O2 Del Method Room Air 11/23/23 15:57 Weight last 48 hrs Weight 45.359 kg Physical Exam 2 Narrative: General: No acute distress, AO x3 HEENT: PERRLA, pupils bilaterally equal and reactive Chest: Normal vesicular breath sounds, no added sounds, equal good air entry bilaterally CVS: S1-S2 regular, ejection systolic murmur present at aortic region radiating to carotids 2/6, pansystolic murmur in pericardium, S3 gallop Abdomen: Soft, nontender, no organomegaly, bowel sounds present Neuro: No focal deficits, no facial deformity, AO x3, power 5/5 in all limbs. Extremity: 3+ pitting edema bilaterally to the knees Data 11/23/23 14:20 11/23/23 14:20 A&P Assessment and plan (1) CHF (congestive heart failure): (2) Severe aortic valve stenosis: (3) Leg swelling: (4) Hypokalemia: Plan Lower limb swelling along with orthopnea most likely in setting of worsening congestive heart failure. History of diastolic heart failure in the past with severe aortic stenosis on last echocardiogram from 02/01. Repeat echocardiogram. IV Lasix at 40 mg daily. Strict input charting, daily weights. Fluid restriction of 1500 cc. Lower limb Doppler to rule out DVT. Monitor electrolytes. Currently having severe hypokalemia. Replaced 60 mg in the ER. Additionally repeat 80 meq more. Repeat potassium level in evening. Hypertension: Goal blood pressure less than 140/90 mmHg. For now continue with home dose of lisinopril. Uptitrate as for goal blood pressure. Cycle troponin. Check TSH CODE STATUS: Discussed in detail with patient at bedside. Niece will be the DPOA. DNR/DNI. Cardiac diet Snyder catheterization. Heparin 5000 every 12 hourly for DVT prophylaxis Protonix OPD prophylaxis Attestations 2 Medical Necessity Statement*: Admission for more than 2 midnights for management of orthopnea, lower limb swelling in setting of congestive heart failure in a patient with severe aortic stenosis along with severe hypokalemia Diagnoses CHF (congestive heart failure) I50.9 Severe aortic valve stenosis I35.0 Leg swelling M79.89 Hypokalemia E87.6
[2023-11-23] MEDS: enoxaparin 40 mg/0.4 mL Syringe SUBCUT (18:32)
[2023-11-23 18:34] LABS: Procalcitonin 0.04 ng/mL (0-0.5)
[2023-11-23] MEDS: FUROsemide 10 mg/mL SDV 4mL 40 MG IVP (19:57)
--- NOTE | 2023-11-23 19:59 | PC.NURSE ---
placed pt on nc 2 l due to pt 02 sat dipping into high 80s while sleeping
[2023-11-23 20:57] LABS: Iron 44 ug/dL (59-158); Percent Saturation 12.3 % (20-50); Thyroid Stimulating Hormone 1.85 uIU/mL (0.27-4.20); Total Iron Binding Capacity 357 mcg/dl; Unsaturated Iron Binding 313 ug/dL (112-347); Vitamin B12 610 pg/mL (232-1245)
[2023-11-23 22:57] LABS: Troponin(5th) Baseline 69 ng/L (0-15)
[2023-11-24] VITALS (10 sets, daily range): BP systolic 95–148; BP diastolic 51–73; PULSE 66–107; RESP 11–21; TEMP 36.4–36.9; O2SAT 94–100
[2023-11-24 00:02] LABS: Add Urine Microscopic? YES; Bilirubin Urine Neg (Negative); Blood Urine Neg (Negative); Glucose Urine UA Norm (Normal); Ketones Urine Negative (Negative); Leukocyte Esterase Urine 1+ (Negative); Nitrate Urine Negative (Negative); Protein Urine Neg (Negative); Sulfosalicylic Acid Urine Negative (Negative); Urine Appearance Clear (CLEAR); Urine Color Light yellow (Yellow); Urobilinogen Urine 1 mg/dL (Negative); pH Urine 8 (5-7)
[2023-11-24 00:17] LABS: Add Urine Culture? No; Bacteria Urine TRACE /hpf; Mucus Urine 1+ /hpf; RBC Urine 0-4 /hpf (0-2); WBC Urine 0-4 /hpf (0-5)
--- NOTE | 2023-11-24 00:30 | ECG_ITS ---
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 Measurements Intervals [place] Rate: 89 P: 80 MO: 152 QRS: -35 QRSD: 144 T: 85 QT: 418 QTc: 510 Interpretive Statements SINUS RHYTHM WITH OCCASIONAL SUPRAVENTRICULAR PREMATURE COMPLEXES POSSIBLE LEFT ATRIAL ENLARGEMENT [-0.1mV P-WAVE IN V1/V2] LEFT AXIS DEVIATION [QRS AXIS < -30] LEFT BUNDLE BRANCH BLOCK [120+ ms QRS DURATION, 80+ ms Q/S IN V1/V2, 85+ ms R IN I/aVL/V5/V6] Compared to ECG 11/23/2023 13:20:48 Left-axis deviation now present First degree AV block no longer present Electronically Signed On 11-24-2023 17:52:17 CDT by Tim Hoffman M.D. [email or web address]
[2023-11-24 01:24] LABS: Troponin 5 2HR 66.26 ng/L (0-15)
[2023-11-24 01:36] LABS: Troponin 5 2HR Delta -2.74 ABS# (0-10)
[2023-11-24 04:24] LABS: Basophils % 0.1 %; Hematocrit 38.9 % (37-53); Lymphocytes % 9.3 %; Mean Corpuscular HGB Conc 30.8 g/dL (30-55); Mean Corpuscular Hemoglobin 28.1 pg (27-33); Mean Corpuscular Volume 91.1 fl (82-101); Mean Platelet Volume 11.1 fL (7.4-10.4); Monocytes # 0.7 10^3/uL (0.2-0.9); Monocytes % 6.8 %; Neutrophils # 8.92 10^3/uL (1.8-7.7); Neutrophils % 83.3 %; Nucleated Red Blood Cells % 0 %; Platelet Count 179 10^3/cmm (157-399); Red Blood Count 4.27 10^6/uL (3.85-5.65); Red Cell Distribution Width 15.1 % (12.1-15.1); White Blood Count 10.71 10^3/uL (3.29-11.43)
--- NOTE | 2023-11-24 04:30 | ECG_ITS ---
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 Measurements Intervals [place] Rate: 94 P: 143 [place]: 178 QRS: -12 QRSD: 146 T: 143 QT: 413 QTc: 517 Interpretive Statements ECTOPIC ATRIAL RHYTHM LEFT ATRIAL ENLARGEMENT [-0.15mV P-WAVE IN V1/V2] LEFT BUNDLE BRANCH BLOCK [120+ ms QRS DURATION, 80+ ms Q/S IN V1/V2, 85+ ms R IN I/aVL/V5/V6] PROBABLE LATERAL MYOCARDIAL INFARCTION , OF INDETERMINATE AGE [35 ms Q WAVE IN I/aVL/V5/V6] Compared to ECG 11/24/2023 01:40:40 Ectopic atrial rhythm now present Myocardial infarct finding now present Sinus rhythm no longer present Left-axis deviation no longer present Electronically Signed On 11-24-2023 17:51:54 CDT by iTm Hoffman M.D. [id number]
[2023-11-24 04:47] LABS: Alanine Aminotransferase 16 U/L (0-41); Albumin Level 3.3 g/dL (3.5-5.2); Alkaline Phosphatase 129 U/L (40-130); Anion Gap 13.6 (5-19); Aspartate Amino Transferase 26 U/L (0-40); Blood Urea Nitrogen 16 mg/dL (8-23); Calcium 8.8 mg/dL (8.5-10.5); Carbon Dioxide 35 mmol/L (22-29); Chloride 99 mmol/L (98-107); Creatinine Clr Calc Pharmacy 48.0364; Globulin 3.2 g/dL (1.3-4.6); Glucose 117 mg/dL (65-115); Osmolality Calculated 298 mOsm/kg (285-295); Phosphorus 3.2 mg/dL (2.5-4.5); Potassium 4.6 mmol/L (3.5-5.1); Sodium 143 mmol/L (136-145); Total Bilirubin 0.8 mg/dL (0.15-1.2); Total Protein 6.5 g/dL (6.6-8.7)
[2023-11-24 04:48] LABS: Troponin 5 6HR 70.66 ng/L (0-15); Troponin 5 6HR Delta 1.66 ng/L (0-12)
[2023-11-24 04:52] LABS: Chol HDL Ratio 3.28 mg/dL (1.0-5.00); Cholesterol 154 mg/dL (0-200); HDL Cholesterol 47 mg/dL (60-100); LDL Cholesterol Calculated 91 mg/dL (50-129); LDL HDL Ratio 1.94 RATIO (0.00-3.22); Triglycerides 79 mg/dL (0-150)
[2023-11-24 04:59] LABS: Estmated Average Glucose 108; Hemoglobin A1C 5.4 % (4.0-6.0)
[2023-11-24 05:05] LABS: Folate Level 5.9 ng/mL (4.5-32.2)
[2023-11-24] MEDS: FUROsemide 10 mg/mL SDV 4mL 40 MG IVP (08:12)
[2023-11-24] MEDS: lisinopril 20 mg Tablet 40 MG PO (08:12)
--- NOTE | 2023-11-24 08:19 | USCV_ITS ---
Sam Escamilla Age: 77 Gender: M : 1945 Exam Date: 11/24/2023 11:44 Ordering Phys: Pierre Cabrera MD Technologist: [place] [facility] [place]: swelling PROCEDURES: The venous duplex Doppler examination of both lower extremities was performed in the standard fashion. Bilaterally, the common femoral, superficial femoral, profunda femoral, popliteal, posterior tibial, greater saphenous veins, and the peroneal trunk were identified and interrogated in the standard fashion. These veins were found to be easily compressible with spontaneous blood flow. No evidence of insufficiency or thrombus noted. FINDINGS: no dvt CONCLUSIONS No evidence of right lower extremity DVT. No evidence of left lower extremity DVT. Ellis Cazares MD (Electronically Signed) Final Date: 24 Nov 2023 13:03 S
[2023-11-24] MEDS: acetaZOLAMIDE 250 mg Tablet 500 MG PO (09:30)
[2023-11-24 09:56] LABS: D Dimer 1.89 ug/mLFEU (0-0.59)
--- NOTE | 2023-11-24 09:58 | PC.CHAP ---
Pastoral Care Encounter/Spiritual Assessment Type of Contact [] Declined plain clothes police officer visit [] Patient/Family/Request visit [] Outpatient visit [] Follow-up visit [] Physician referral [] Code/Alert [] Routine visit [] Staff referral [] Actively dying [] Patient sleeping [] Family support [] [] Out of room [] Palliative care [] [x] Receiving care in room [] Pre-surgical visit [] Trauma [] Long length of stay [] ICU visit [] Other: Relational/Emotional Strength [] Patient feels connected with others/family/visitors/staff [] Distress [] Loneliness/isolation [] Abandonment Spirituality of Patient [] Person of Elise [] Attends Rastafari of their Elise [] Believes in Prayer [] Reads Bible or Adventism materials [] There are Spiritual issues to be addressed Estate Tax Examiner Interventions [] Prayer [] Active listening [] Non-anxious presence [] Spiritual/emotional support [] Crisis/trauma care [] Spiritual counseling [] Bereavement support [] Provided bereavement packet [] Provided Bible/devotional materials [] Provided toy/stuffed animal, coloring book to patient or family member [] Provided Communion [] Anointing/[place] [] Salvation [] Completed spiritual assessment [] Other: Impact on Illness or Injury [] Angry [] Fearful [] Anxious [] Often cries [] Exhaustion [] Unable to work [] Unable to attend taoist [] Unable to walk/stand [] Unable to read [] Unable to drive [] Unable to eat/drink [] Unable to sleep [] Unable to be with family [] Patient intubated [] Other: Summary Time spent with patient
--- NOTE | 2023-11-24 14:54 | P.PN_ITS ---
Subjective 2 Subjective: No acute vents overnight. Seen with family at bedside. Today morning patient is on 2 L oxygen supplementation saturating more than 97%. States he is feeling better. Denies any nausea, ting, headache. Documented urine output of around 900 cc overnight. Vitals/I&O/Wt Last Vital Signs Temp 98.0 F 11/24/23 11:39 Pulse 96 11/24/23 11:39 Resp 21 H 11/24/23 11:39 BP 102/55 11/24/23 11:39 Pulse Ox 99 11/24/23 11:39 O2 Del Method Nasal Cannula 11/24/23 11:39 O2 Flow Rate 2 11/24/23 09:30 11/23/23 11/24/23 11/24/23 22:59 06:59 14:59 Intake Total 600 / 600 Output Total 525 / 525 400 / 925 Balance -525 / -525 -400 / -925 600 / 600 Weight last 48 hrs Weight 50.984 kg Weight 45.359 kg Physical Exam 2 Narrative: General: No acute distress, AO x3 HEENT: PERRLA, pupils bilaterally equal and reactive Chest: Normal vesicular breath sounds, no added sounds, equal good air entry bilaterally CVS: S1-S2 regular, ejection systolic murmur present at aortic region radiating to carotids 2/6, pansystolic murmur in pericardium, S3 gallop Abdomen: Soft, nontender, no organomegaly, bowel sounds present Neuro: No focal deficits, no facial deformity, AO x3, power 5/5 in all limbs. Extremity: 3+ pitting edema bilaterally to the knees Urinary Catheter Management: Snyder: Cath Placed During This Visit: yes Reason for Continuing Indwelling Catheter: Other Urinary Catheter Date of Insertion: 11/23/23 Urinary Catheter Time of Insertion: 20:23 Data 11/24/23 04:04 11/24/23 04:04 A&P Assessment and plan (1) CHF (congestive heart failure): (2) Severe aortic valve stenosis: (3) Leg swelling: (4) Hypokalemia: (5) Severe pulmonary hypertension: (6) Moderate mitral valve regurgitation: Plan Lower limb swelling along with orthopnea most likely in setting of worsening congestive heart failure. History of diastolic heart failure in the past with severe aortic stenosis on last echocardiogram from 02/01. Repeat echocardiogram close EF down to 45 to 50% with global mild LV hypokinesia, severe aortic stenosis with mean gradient of 37 mmHg, moderate to severe MR, mild to moderate TR with severe pulmonary hypertension, dilated IVC. Continue with IV Lasix at 40 mg daily. Patient developing mild contraction alkalosis. Add Diamox 500 mg oral daily. Strict input charting, daily weights. Fluid restriction of 1500 cc. Lower limb Doppler negative for DVT. Severe pulmonary hypertension: Most likely in setting of left heart failure and severe aortic stenosis. Check D-dimer. Monitor electrolytes. Hypokalemia has resolved. Repeat BMP in evening. Hypertension: Goal blood pressure less than 140/90 mmHg. Hold off on home dose of lisinopril to maximize diuretic effect for now. CODE STATUS: Discussed in detail with patient at bedside. Niece will be the DPOA. DNR/DNI. Cardiac diet Snyder catheterization. Heparin 5000 every 12 hourly for DVT prophylaxis Protonix OPD prophylaxis Attestations 2 Medical Necessity Statement*: Requires further hospitalization for management of congestive heart failure with severe aortic stenosis, severe pulmonary hypertension leading to lower limb edema Diagnoses CHF (congestive heart failure) I50.9 Severe aortic valve stenosis I35.0 Leg swelling M79.89 Hypokalemia E87.6 Severe pulmonary hypertension I27.20 Moderate mitral valve regurgitation I34.0
[2023-11-24 16:19] LABS: Anion Gap 8.8 (5-19); Blood Urea Nitrogen 21 mg/dL (8-23); Carbon Dioxide 35 mmol/L (22-29); Chloride 102 mmol/L (98-107); Creatinine Clr Calc Pharmacy 57.7526; Glucose 157 mg/dL (65-115); Osmolality Calculated 300 mOsm/kg (285-295); Potassium 3.8 mmol/L (3.5-5.1); Sodium 142 mmol/L (136-145)
[2023-11-24] MEDS: enoxaparin 40 mg/0.4 mL Syringe SUBCUT (17:59)
--- NOTE | 2023-11-24 22:31 | USCV_ITS ---
Sam Escamilla Age: 77 Gender: M : 1945 Exam Date: 11/24/2023 02:06 Ordering Phys: Pierre Cabrera MD Technologist: TRINITY [place] [facility] [place]: CHF, SOB, hypoxia, BLE edema. History of severe BP: 155 / 86 HR: 90 Rhythm: Atrial Fibrillation Technical Quality: Adequate MEASUREMENTS (Male / Female) Normal Values 2D ECHO LV Diastolic Diameter PLAX 3.5 cm 4.2 - 5.9 / 3.9 - 5.3 cm IVS Diastolic Thickness 1.8 cm 0.6 - 1.0 / 0.6 - 0.9 cm IVS Systolic Thickness 1.6 cm LVPW Diastolic Thickness 1.5 cm 0.6 - 1.0 / 0.6 - 0.9 cm LVPW Systolic Thickness 2.0 cm LVOT Diameter 1.5 cm LV Ejection Fraction 2D Teich 42.6 % LV Ejection Fraction MOD 2C 42.1 % LV Ejection Fraction 2C AL 42.7 % LA Diameter 4.8 cm Aorta at Sinotubular Diameter 3.5 cm IVC Diameter 2.3 cm M-MODE LA Ao Ratio MM 1.7 AV Cusp Separation MM 0.7 cm DOPPLER AV Peak Velocity 430.0 cm/s LVOT Peak Velocity 84.0 cm/s AV Area Cont Eq vti 0.3 cm squared AV Area Cont Eq pk 0.3 cm squared MV Peak Velocity 244.0 cm/s MV Area PHT 4.1 cm squared Mitral E to A Ratio 559.0 TV Peak Velocity 344.3 cm/s TR Peak Velocity 411.0 cm/s TR Peak Gradient 67.6 mmHg TV Peak E Velocity 70.0 cm/s Right Atrial Pressure 10.0 mmHg Pulmonary Artery Systolic Pressu 77.6 mmHg PV Peak Velocity 72.0 cm/s FINDINGS Left Ventricle Left ventricle is normal in size. LV systolic function is mildly reduced with EF of 45-50%. Mild global hypokinesis seen. Right Ventricle Normal in size and function Right Atrium Normal in size Left Atrium Severely dilated Mitral Valve Mitral valve is thickened and calcified. Moderate to severe mitral regurgitation Aortic Valve Aortic valve is thickened and calcified. Moderate aortic regurgitation. Severe aortic stenosis with mean gradient of 37 mmHg. Tricuspid Valve Mild to moderate tricuspid regurgitation. RVSP is >60mmHg. This is consistent with severe pulmonary hypertension Pulmonic Valve Not well visualized Pericardium Small sized pericardial effusion. Aorta Normal in size IVC Appears to be dilated CONCLUSIONS LV systolic function is mildly dilated with EF of 45-50% Severely dilated left atrium Moderate to severe mitral regurgitation Severe aortic stenosis with mean gradient of 37 mmHg. Mild to moderate tricuspid regurgitation. Severe pulmonary hypertension Small sized pericardial effusion IVC is dilated. Compared to prior echocardiogram from 2022, LV systolic function has decreased and patient is ntoed to have moderate to severe mitral regurgitation Tim Hoffman MD (Electronically Signed) Final Date: 24 Nov 2023 12:51 S
[2023-11-25] VITALS (9 sets, daily range): BP systolic 94–119; BP diastolic 47–71; PULSE 73–94; RESP 16–22; TEMP 36.4–36.6; O2SAT 93–99
[2023-11-25 05:24] LABS: Basophils % 0.2 %; Eosinophils % 0.1 %; Hematocrit 35.1 % (37-53); Lymphocytes # 0.9 10^3/uL (0.8-4.8); Mean Corpuscular HGB Conc 30.5 g/dL (30-55); Mean Corpuscular Hemoglobin 28.4 pg (27-33); Mean Corpuscular Volume 93.1 fl (82-101); Mean Platelet Volume 11.8 fL (7.4-10.4); Monocytes # 0.7 10^3/uL (0.2-0.9); Monocytes % 5.5 %; Neutrophils % 86.9 %; Nucleated Red Blood Cells % 0 %; Platelet Count 161 10^3/cmm (157-399); Red Blood Count 3.77 10^6/uL (3.85-5.65); Red Cell Distribution Width 15.4 % (12.1-15.1); White Blood Count 12.54 10^3/uL (3.29-11.43)
[2023-11-25 05:42] LABS: Alanine Aminotransferase 14 U/L (0-41); Albumin Level 2.9 g/dL (3.5-5.2); Alkaline Phosphatase 110 U/L (40-130); Anion Gap 10.1 (5-19); Aspartate Amino Transferase 19 U/L (0-40); Blood Urea Nitrogen 23 mg/dL (8-23); Calcium 8.4 mg/dL (8.5-10.5); Carbon Dioxide 33 mmol/L (22-29); Chloride 103 mmol/L (98-107); Creatinine Clr Calc Pharmacy 56.8058; Globulin 3.1 g/dL (1.3-4.6); Glucose 90 mg/dL (65-115); Osmolality Calculated 297 mOsm/kg (285-295); Potassium 4.1 mmol/L (3.5-5.1); Sodium 142 mmol/L (136-145); Total Bilirubin 0.5 mg/dL (0.15-1.2)
[2023-11-25] MEDS: FUROsemide 10 mg/mL SDV 4mL 40 MG IVP ×2 (08:31→20:18)
[2023-11-25] MEDS: acetaZOLAMIDE 250 mg Tablet 500 MG PO (08:31)
--- NOTE | 2023-11-25 10:41 | PC.SOCIAL ---
IMM Update Pg. 2 of IMM updated and reviewed with patient, who verbalized understanding. Copy provided.
--- NOTE | 2023-11-25 12:46 | P.PN_ITS ---
Subjective 2 Subjective: No acute events overnight. Patient has remained hemodynamically stable and afebrile. Currently on 2 L of oxygen supplementation saturating more than 95%. Seen with family at bedside. As per the patient he thinks he is doing better. Vitals/I&O/Wt Last Vital Signs Temp 97.7 F 11/25/23 11:44 Pulse 73 11/25/23 11:44 Resp 20 H 11/25/23 11:44 BP 102/52 11/25/23 11:44 Pulse Ox 95 11/25/23 11:44 O2 Del Method Nasal Cannula 11/25/23 11:44 O2 Flow Rate 2 11/25/23 07:34 11/24/23 11/25/23 11/25/23 22:59 06:59 14:59 Intake Total 240 / 840 Output Total 500 / 500 150 / 650 150 / 150 Balance -260 / 340 -150 / 190 -150 / -150 Weight last 48 hrs Weight 49.442 kg Weight 50.984 kg Weight 45.359 kg Physical Exam 2 Narrative: General: No acute distress, AO x3, frail appearing, chronically sick appearing HEENT: PERRLA, pupils bilaterally equal and reactive Chest: Normal vesicular breath sounds, no added sounds, equal good air entry bilaterally CVS: S1-S2 regular, ejection systolic murmur present at aortic region radiating to carotids 2/6, pansystolic murmur in pericardium, S3 gallop Abdomen: Soft, nontender, no organomegaly, bowel sounds present Neuro: No focal deficits, no facial deformity, AO x3, power 5/5 in all limbs. Extremity: 3+ pitting edema bilaterally to the knees Urinary Catheter Management: Snyder: Cath Placed During This Visit: yes Reason for Continuing Indwelling Catheter: Accurate Measurement of Urinary Output in Critically Ill Patients Urinary Catheter Date of Insertion: 11/23/23 Urinary Catheter Time of Insertion: 20:23 Data 11/25/23 04:44 11/25/23 04:44 A&P Assessment and plan (1) CHF (congestive heart failure): (2) Severe aortic valve stenosis: (3) Leg swelling: (4) Hypokalemia: (5) Severe pulmonary hypertension: (6) Moderate mitral valve regurgitation: (7) Goals of care, counseling/discussion: Plan Lower limb swelling along with orthopnea most likely in setting of worsening congestive heart failure. History of diastolic heart failure in the past with severe aortic stenosis on last echocardiogram from 02/01. Repeat echocardiogram close EF down to 45 to 50% with global mild LV hypokinesia, severe aortic stenosis with mean gradient of 37 mmHg, moderate to severe MR, mild to moderate TR with severe pulmonary hypertension, dilated IVC. Patient overall 900 cc negative. States feeling better. Renal functions have remained stable. Continue with Diamox 500 mg oral daily. Increase Lasix to 40 mg IV twice daily. Strict input charting, daily weights. Fluid restriction of 1500 cc. Lower limb Doppler negative for DVT. Severe pulmonary hypertension: Most likely in setting of left heart failure and severe aortic stenosis. Monitor electrolytes. Hypokalemia has resolved. Repeat BMP in evening. Hypertension: Goal blood pressure less than 140/90 mmHg. Hold off on home dose of lisinopril to maximize diuretic effect for now. CODE STATUS: Discussed in detail with patient at bedside. Niece will be the DPOA. DNR/DNI. Cardiac diet Snyder catheterization. Heparin 5000 every 12 hourly for DVT prophylaxis Protonix for PUD prophylaxis Goals of care discussion: Discussed needed with the patient that unfortunately he is having congestive heart failure in setting of severe aortic stenosis which is leading for his EF to decrease along with other valvular regurgitation and severe pulmonary hypertension. Discussed going forward the options would be as follows. TAVR versus aortic valve replacement. Medical management with diuretics with the risk of acute renal failure versus CKD with the possibility of recurrent admissions with congestive heart failure Hospice care. Patient would like to think further before making any further decisions. Attestations 2 Medical Necessity Statement*: Requires further hospitalization for management of congestive heart failure in setting of severe pulmonary hypertension severe MR in setting of severe aortic stenosis and systolic dysfunction Diagnoses CHF (congestive heart failure) I50.9 Severe aortic valve stenosis I35.0 Leg swelling M79.89 Hypokalemia E87.6 Severe pulmonary hypertension I27.20 Moderate mitral valve regurgitation I34.0 Goals of care, counseling/discussion Z71.89
[2023-11-25] MEDS: nicotine 21 mg Patch 1 PATCH TRANSDERMA (13:00)
[2023-11-25] MEDS: albumin 25 G/100 ML BAG 60 G IV (17:34)
[2023-11-25] MEDS: enoxaparin 40 mg/0.4 mL Syringe SUBCUT (17:43)
[2023-11-26] VITALS (11 sets, daily range): BP systolic 110–141; BP diastolic 51–76; PULSE 76–100; RESP 20–34; TEMP 36.5–37.1; O2SAT 94–97; BMI 18.8
[2023-11-26] MEDS: albumin 25 G/100 ML BAG 60 G IV ×3 (01:16→17:30)
[2023-11-26] MEDS: nicotine 21 mg Patch 1 PATCH TRANSDERMA (08:32)
[2023-11-26] MEDS: FUROsemide 10 mg/mL SDV 4mL 40 MG IVP ×2 (08:32→21:44)
[2023-11-26] MEDS: acetaZOLAMIDE 250 mg Tablet 500 MG PO (08:32)
--- NOTE | 2023-11-26 11:50 | PC.NURSE ---
Dr Cabrera asked nurse to speak with case managment and ask them to set up home health. Nurse contacted Cornelius Timmons RN in case management.
--- NOTE | 2023-11-26 12:44 | P.PN_ITS ---
Subjective 2 Subjective: No acute events overnight. Today morning on examination patient laying comfortably in bed on room air. Seen with family at bedside. Has remained hemodynamically stable and afebrile. Urine output of around 3 L in last 24 hours. Vitals/I&O/Wt Last Vital Signs Temp 97.8 F 11/26/23 08:00 Pulse 100 11/26/23 08:00 Resp 20 H 11/26/23 08:00 BP 141/67 11/26/23 11:38 Pulse Ox 94 11/26/23 11:38 O2 Del Method Room Air 11/26/23 11:38 O2 Flow Rate 1 11/26/23 08:00 11/25/23 11/26/23 11/26/23 22:59 06:59 14:59 Intake Total 220 / 340 100 / 440 350 / 350 Output Total 1000 / 1150 1500 / 2650 550 / 550 Balance -780 / -810 -1400 / -2210 -200 / -200 Weight last 48 hrs Weight 49.442 kg Physical Exam 2 Narrative: General: No acute distress, AO x3, frail appearing, chronically sick appearing HEENT: PERRLA, pupils bilaterally equal and reactive Chest: Normal vesicular breath sounds, no added sounds, equal good air entry bilaterally CVS: S1-S2 regular, ejection systolic murmur present at aortic region radiating to carotids 2/6, pansystolic murmur in pericardium, S3 gallop Abdomen: Soft, nontender, no organomegaly, bowel sounds present Neuro: No focal deficits, no facial deformity, AO x3, power 5/5 in all limbs. Extremity: 3+ pitting edema bilaterally to the knees Urinary Catheter Management: Snyder: Cath Placed During This Visit: yes Reason for Continuing Indwelling Catheter: Accurate Measurement of Urinary Output in Critically Ill Patients Urinary Catheter Date of Insertion: 11/23/23 Urinary Catheter Time of Insertion: 20:23 Data 11/25/23 04:44 11/25/23 04:44 A&P Assessment and plan (1) CHF (congestive heart failure): (2) Severe aortic valve stenosis: (3) Leg swelling: (4) Hypokalemia: (5) Severe pulmonary hypertension: (6) Moderate mitral valve regurgitation: (7) Goals of care, counseling/discussion: Plan Lower limb swelling along with orthopnea most likely in setting of worsening congestive heart failure. History of diastolic heart failure in the past with severe aortic stenosis on last echocardiogram from 02/01. Repeat echocardiogram close EF down to 45 to 50% with global mild LV hypokinesia, severe aortic stenosis with mean gradient of 37 mmHg, moderate to severe MR, mild to moderate TR with severe pulmonary hypertension, dilated IVC. Patient overall 900 cc negative. States feeling better. Renal functions have remained stable. Continue with Diamox 500 mg oral daily. Increase Lasix to 40 mg IV twice daily. Strict input charting, daily weights. Fluid restriction of 1500 cc. Lower limb Doppler negative for DVT. Severe pulmonary hypertension: Most likely in setting of left heart failure and severe aortic stenosis. Monitor electrolytes. Hypokalemia has resolved. Repeat BMP in evening. Hypertension: Goal blood pressure less than 140/90 mmHg. Hold off on home dose of lisinopril to maximize diuretic effect for now. CODE STATUS: Discussed in detail with patient at bedside. Niece will be the DPOA. DNR/DNI. Cardiac diet Snyder catheterization. Heparin 5000 every 12 hourly for DVT prophylaxis Protonix for PUD prophylaxis Goals of care discussion: Discussed needed with the patient that unfortunately he is having congestive heart failure in setting of severe aortic stenosis which is leading for his EF to decrease along with other valvular regurgitation and severe pulmonary hypertension. Discussed going forward the options would be as follows. TAVR versus aortic valve replacement. Medical management with diuretics with the risk of acute renal failure versus CKD with the possibility of recurrent admissions with congestive heart failure Hospice care. Patient would like to think further before making any further decisions. Plan for the day: Repeat CMP. Patient has remained hemodynamically stable. Blood pressures stable. Heart rate mildly elevated. Start on metoprolol 25 mg twice daily. For now continue with aggressive IV diuresis with Lasix 40 mg twice daily and Diamox 500 mg oral daily. Out of bed to chair. Physical therapy. Again discussed in detail with the patient regarding goals of care. He does not want to go ahead with any kind of valvular surgery or TAVR. He would like to think further before making a decision about hospice. Discussed about safe discharge planning. He is agreeable for home health. Case management has been alerted. Discharge plan: If patient remains hemodynamically stable, afebrile and renal functions remained stable within next 24 hours we will plan to discharge on oral diuretics with home health Attestations 2 Medical Necessity Statement*: Requires further hospitalization for management of systolic and diastolic congestive heart failure in setting of valvular disorder, severe , severe pulmonary hypertension while patient is diuresed and safe discharge planning is sought Diagnoses CHF (congestive heart failure) I50.9 Severe aortic valve stenosis I35.0 Leg swelling M79.89 Hypokalemia E87.6 Severe pulmonary hypertension I27.20 Moderate mitral valve regurgitation I34.0 Goals of care, counseling/discussion Z71.89
[2023-11-26] MEDS: metoprolol tartrate 25 mg Tablet PO (13:51)
[2023-11-26 13:52] LABS: Alanine Aminotransferase 13 U/L (0-41); Albumin Level 3.8 g/dL (3.5-5.2); Alkaline Phosphatase 104 U/L (40-130); Anion Gap 13.1 (5-19); Aspartate Amino Transferase 17 U/L (0-40); Blood Urea Nitrogen 20 mg/dL (8-23); Calcium 8.6 mg/dL (8.5-10.5); Carbon Dioxide 30 mmol/L (22-29); Chloride 98 mmol/L (98-107); Creatinine Clr Calc Pharmacy 56.1633; Glucose 114 mg/dL (65-115); Osmolality Calculated 289 mOsm/kg (285-295); Potassium 3.1 mmol/L (3.5-5.1); Sodium 138 mmol/L (136-145); Total Bilirubin 0.8 mg/dL (0.15-1.2); Total Protein 6.8 g/dL (6.6-8.7)
[2023-11-26] MEDS: potassium chloride ER 20 mEq Tablet 80 MEQ PO (15:10)
[2023-11-26] MEDS: enoxaparin 40 mg/0.4 mL Syringe SUBCUT (17:30)
[2023-11-26] MEDS: morphine 4 mg/mL SDV 1 mL 2 MG IVP (17:31)
--- NOTE | 2023-11-26 18:13 | PC.NURSE ---
2mg of morphine given to patient for pain/anxiety.
[2023-11-26] MEDS: haloperidol inj 5 mg/mL INJ 1 mL 1 MG IM (23:44)
[2023-11-27] VITALS: BP 120/58; PULSE 87; RESP 29; TEMP 36.6; O2SAT 95
[2023-11-27] MEDS: albumin 25 G/100 ML BAG 60 G IV ×2 (01:31→09:12)
--- NOTE | 2023-11-27 02:20 | PC.NURSE ---
Patient became restless and agitated. Crawling out of bed, pulling on knapp catheter and IV. Redirection was attempted multiple times. Patient was educated on the importance of knapp and that climbing over railing in bed is a fall risk. Patient refused PO medication and would not take PO metoprolol nor Xanax. after multiple redirection attempts failed Dr. Murillo was notified and gave 1:1 and 1mg haldol orders.
[2023-11-27 04:00] VITALS: BP 151/88; PULSE 81; RESP 26; TEMP 36.6; O2SAT 94
[2023-11-27 05:19] LABS: Basophils % 0.2 %; Eosinophils % 0.2 %; Hematocrit 34.8 % (37-53); Lymphocytes # 0.7 10^3/uL (0.8-4.8); Lymphocytes % 7.7 %; Mean Corpuscular HGB Conc 30.5 g/dL (30-55); Mean Corpuscular Hemoglobin 27.7 pg (27-33); Mean Corpuscular Volume 91.1 fl (82-101); Mean Platelet Volume 11.8 fL (7.4-10.4); Monocytes # 0.5 10^3/uL (0.2-0.9); Monocytes % 5.5 %; Neutrophils # 8.17 10^3/uL (1.8-7.7); Neutrophils % 85.9 %; Nucleated Red Blood Cells % 0 %; Platelet Count 182 10^3/cmm (157-399); Red Blood Count 3.82 10^6/uL (3.85-5.65); Red Cell Distribution Width 14.9 % (12.1-15.1); White Blood Count 9.51 10^3/uL (3.29-11.43)
[2023-11-27 05:43] LABS: Alanine Aminotransferase 16 U/L (0-41); Albumin Level 4.1 g/dL (3.5-5.2); Alkaline Phosphatase 106 U/L (40-130); Anion Gap 19.1 (5-19); Aspartate Amino Transferase 27 U/L (0-40); Blood Urea Nitrogen 26 mg/dL (8-23); Carbon Dioxide 25 mmol/L (22-29); Chloride 100 mmol/L (98-107); Creatinine Clr Calc Pharmacy 55.6554; Globulin 3.1 g/dL (1.3-4.6); Glucose 126 mg/dL (65-115); Osmolality Calculated 296 mOsm/kg (285-295); Potassium 4.1 mmol/L (3.5-5.1); Sodium 140 mmol/L (136-145); Total Bilirubin 1.1 mg/dL (0.15-1.2); Total Protein 7.2 g/dL (6.6-8.7)
[2023-11-27 06:00] VITALS: PULSE 95
[2023-11-27 07:44] VITALS: BP 142/84; PULSE 106; RESP 22; TEMP 36.3
[2023-11-27 08:00] VITALS: O2SAT 94
[2023-11-27] MEDS: acetaZOLAMIDE 250 mg Tablet 500 MG PO (09:09)
[2023-11-27] MEDS: FUROsemide 10 mg/mL SDV 4mL 40 MG IVP (09:12)
[2023-11-27] MEDS: nicotine 21 mg Patch 1 PATCH TRANSDERMA (09:12)
--- NOTE | 2023-11-27 10:01 | PM.DCS ---
Discharge Providers Date of Admission: 11/23/23 17:44 Date of Discharge: November 27, 2023 Attending Provider at Admission: Pierre Cabrera MD Attending Provider at Discharge: Pierre Cabrera MD Primary Care Provider: Andres Jordan MD Diagnoses at Discharge Discharge Diagnosis (1) CHF (congestive heart failure): Status: Acute (2) Severe aortic valve stenosis: Status: Acute (3) Leg swelling: Status: Acute (4) Hypokalemia: Status: Acute (5) Severe pulmonary hypertension: Status: Acute (6) Moderate mitral valve regurgitation: Status: Acute (7) Goals of care, counseling/discussion: Status: Acute Reason for Visit Reason for Visit: swelling leg, sob Hospital Course Hospital Course Sam Escamilla is a 77 year old male with past medical history of hypertension, severe aortic stenosis, diastolic heart failure presented to the ER because of worsening swelling in his lower limbs along with weakness and difficulty in breathing associated with orthopnea increasing over the last 2 weeks at home. As per the patient his diuretic was doubled to 40 mg daily as per his primary care provider within the last 1 week without any help. In the ER he was found to have potassium of 2.6 hence decision was made to admit. Examination patient sitting up in bed with difficulty in laying down because of difficulty in breathing maintain saturation reported oxygen supplementation. Denies any nausea vomiting, headache. Does complain of mild chest discomfort around 3 to 4 weeks ago. Denies any difficulty in appetite, palpitations. Patient was admitted to the hospital for further evaluation and management of congestive heart failure. Started on aggressive IV diuresis. Echocardiogram was done which showed severe aortic stenosis with LV dysfunction EF of 45%, moderate MR, moderate TR with severe pulmonary hypertension. He was continued on IV diuresis. His renal function remained stable and he has been doing well on room air. Given his advanced age, multiple comorbidities, worsening EF in setting of severe aortic stenosis further goals of care discussions were done in detail with the patient and caregiver at bedside. Goals of care discussed were that patient that unfortunately he is having congestive heart failure in setting of severe aortic stenosis which is leading for his EF to decrease along with other valvular regurgitation and severe pulmonary hypertension. Discussed going forward the options would be as follows. -TAVR versus aortic valve replacement. -Medical management with diuretics with the risk of acute renal failure versus CKD with the possibility of recurrent admissions with congestive heart failure -Hospice care. Patient denied the opportunity to go ahead for aortic valve replacement including TAVR. Patient and family finally decided to go home with hospice. He has been discharged in hemodynamically stable condition to home with hospice for further care as per goals of care discussions. Physical Exam Narrative: General: No acute distress, AO x3, frail appearing, chronically sick appearing HEENT: PERRLA, pupils bilaterally equal and reactive Chest: Normal vesicular breath sounds, no added sounds, equal good air entry bilaterally CVS: S1-S2 regular, ejection systolic murmur present at aortic region radiating to carotids 2/6, pansystolic murmur in pericardium, S3 gallop Abdomen: Soft, nontender, no organomegaly, bowel sounds present Neuro: No focal deficits, no facial deformity, AO x3, power 5/5 in all limbs. Extremity: 3+ pitting edema bilaterally to the knees Urinary Catheter Management: Snyder: Cath Placed During This Visit: yes Reason for Continuing Indwelling Catheter: Accurate Measurement of Urinary Output in Critically Ill Patients Urinary Catheter Date of Insertion: 11/23/23 Urinary Catheter Time of Insertion: 20:23 Discharge Data Studies Completed and Pending Completed Studies During Hospitalization Category Date Time Status XR chest 1V portable [id number] Stat Exams 11/23/23 12:44 Completed XR chest 2V* [id number] Stat Exams 11/23/23 15:39 [place] [id number] Routine Ultrasound 11/24/23 08:19 Completed CV. echo complete* [id number] Routine Ultrasound 11/24/23 22:31 Completed Radiology Impressions Chest X-Ray 11/23/23 15:39 IMPRESSION: 1. Low lung volumes findings suggest at least partial component of congestive failure and/or fluid overload accentuated by incomplete pulmonary expansion. Additional nonspecific areas of bibasilar atelectasis and/or airspace disease. 2. Limited assessment of multilevel thoracolumbar vertebral body compression fractures given technique and osteopenia. CT or MRI could be performed for more detailed assessment if clinically warranted. Echocardiogram: CONCLUSIONS LV systolic function is mildly dilated with EF of 45-50% Severely dilated left atrium Moderate to severe mitral regurgitation Severe aortic stenosis with mean gradient of 37 mmHg. Mild to moderate tricuspid regurgitation. Severe pulmonary hypertension Small sized pericardial effusion IVC is dilated. Compared to prior echocardiogram from 2022, LV systolic function has decreased and patient is ntoed to have moderate to severe mitral regurgitation Tim Hoffman MD (Electronically Signed) Final Date: 24 Nov 2023 12:5 Laboratory Results WBC 9.51 10^3/uL (3.29-11.43) 11/27/23 04:37 RBC 3.82 10^6/uL (3.85-5.65) L 11/27/23 04:37 Hgb 10.60 g/dL (11.27-16.99) L 11/27/23 04:37 Hct 34.8 % (37-53) L 11/27/23 04:37 MCV 91.1 fl (82-101) 11/27/23 04:37 MCH 27.7 pg (27-33) 11/27/23 04:37 MCHC 30.5 g/dL (30-55) 11/27/23 04:37 RDW 14.9 % (12.1-15.1) 11/27/23 04:37 Plt Count 182 10^3/cmm (157-399) 11/27/23 04:37 MPV 11.8 fL (7.4-10.4) H 11/27/23 04:37 Neut % (Auto) 85.9 % 11/27/23 04:37 Lymph % (Auto) 7.7 % 11/27/23 04:37 [place] % (Auto) 5.5 % 11/27/23 04:37 Eos % (Auto) 0.2 % 11/27/23 04:37 Baso % (Auto) 0.2 % 11/27/23 04:37 Neut # (Auto) 8.17 10^3/uL (1.8-7.7) H 11/27/23 04:37 Lymph # (Auto) 0.7 10^3/uL (0.8-4.8) L 11/27/23 04:37 [place] # (Auto) 0.5 10^3/uL (0.2-0.9) 11/27/23 04:37 Eos # (Auto) 0.0 10^3/uL (0.0-0.8) 11/27/23 04:37 Baso # (Auto) 0.0 10^3/uL (0.0-0.1) 11/27/23 04:37 Nucleated RBC % (auto) 0 % 11/27/23 04:37 Nucleated RBCs # 0.0 /100WBC 11/27/23 04:37 PT 14.20 SECONDS (12.1-14.9) 11/23/23 14:20 INR 1.07 (0.8-1.2) 11/23/23 14:20 D-Dimer 1.89 ug/mLFEU (0-0.59) H 11/24/23 09:13 Sodium 140 mmol/L (136-145) 11/27/23 04:37 Potassium 4.1 mmol/L (3.5-5.1) 11/27/23 04:37 Chloride 100 mmol/L (98-107) 11/27/23 04:37 Carbon Dioxide 25 mmol/L (22-29) 11/27/23 04:37 Anion Gap 19.1 (5-19) H 11/27/23 04:37 BUN 26 mg/dL (8-23) H 11/27/23 04:37 Creatinine 0.7 mg/dL (0.7-1.2) 11/27/23 04:37 GFR Calculation Not Reportable 11/27/23 04:37 Glucose 126 mg/dL (65-115) H 11/27/23 04:37 Estimat Average Glucose 108 11/24/23 04:04 Hemoglobin A1c 5.4 % (4.0-6.0) 11/24/23 04:04 Calculated Osmolality 296 mOsm/kg (285-295) H 11/27/23 04:37 Calcium 9.0 mg/dL (8.5-10.5) 11/27/23 04:37 Phosphorus 3.2 mg/dL (2.5-4.5) 11/24/23 04:04 Magnesium 2.0 mg/dL (1.7-2.3) 11/24/23 04:04 Iron 44 ug/dL (59-158) L 11/23/23 14:20 TIBC 357 mcg/dl 11/23/23 14:20 % Saturation 12.3 % (20-50) L 11/23/23 14:20 Unsat Iron Binding 313 ug/dL (112-347) 11/23/23 14:20 Total Bilirubin 1.1 mg/dL (0.15-1.2) 11/27/23 04:37 AST 27 U/L (0-40) 11/27/23 04:37 ALT 16 U/L (0-41) 11/27/23 04:37 Alkaline Phosphatase 106 U/L (40-130) 11/27/23 04:37 Troponin T Baseline 69 ng/L (0-15) H 11/23/23 21:55 Troponin T 120 Minute 66.26 ng/L (0-15) H 11/24/23 00:47 Delta Troponin T -2.74 ABS# (0-10) L 11/24/23 00:47 Troponin T Hi Sens 6Hr 70.66 ng/L (0-15) H 11/24/23 04:04 Troponin T Hi Sens 6Hr Delta 1.66 ng/L (0-12) 11/24/23 04:04 NT-Pro-B Natriuret Pep 5943 pg/mL (0-450) H 11/23/23 14:20 Total Protein 7.2 g/dL (6.6-8.7) 11/27/23 04:37 Albumin 4.1 g/dL (3.5-5.2) 11/27/23 04:37 Globulin 3.1 g/dL (1.3-4.6) 11/27/23 04:37 Triglycerides 79 mg/dL (0-150) 11/24/23 04:04 Cholesterol 154 mg/dL (0-200) 11/24/23 04:04 LDL Cholesterol, Calc 91 mg/dL (50-129) 11/24/23 04:04 HDL Cholesterol 47 mg/dL (60-100) L 11/24/23 04:04 LDL/HDL Ratio 1.94 RATIO (0.00-3.22) 11/24/23 04:04 Cholesterol/HDL Ratio 3.28 mg/dL (1.0-5.00) 11/24/23 04:04 Vitamin B12 610 pg/mL (232-1245) 11/23/23 14:20 Folate 5.9 ng/mL (4.5-32.2) 11/24/23 04:04 Procalcitonin 0.04 ng/mL (0-0.5) 11/23/23 14:20 TSH 1.85 uIU/mL (0.27-4.20) 11/23/23 14:20 Urine Color Light yellow (Yellow) 11/23/23 23:45 Urine Appearance Clear (CLEAR) 11/23/23 23:45 Urine pH 8 (5-7) H 11/23/23 23:45 Ur Specific [place] 1.010 (1.005-1.030) 11/23/23 23:45 Urine Protein Neg (Negative) 11/23/23 23:45 Urine Glucose (UA) Norm (Normal) 11/23/23 23:45 Urine Ketones Negative (Negative) 11/23/23 23:45 Urine Blood Neg (Negative) 11/23/23 23:45 Urine Nitrate Negative (Negative) 11/23/23 23:45 Urine Bilirubin Neg (Negative) 11/23/23 23:45 Prot Sulfosalicylic Acd Negative (Negative) 11/23/23 23:45 Urine Urobilinogen 1 mg/dL (Negative) H 11/23/23 23:45 Ur Leukocyte Esterase 1+ (Negative) H 11/23/23 23:45 Urine RBC 0-4 /hpf (0-2) H 11/23/23 23:45 Urine WBC 0-4 /hpf (0-5) H 11/23/23 23:45 Ur Squamous Epith Cells None /hpf (0-5) 11/23/23 23:45 Amorphous Sediment Not Reportable 11/23/23 23:45 Urine Bacteria Trace /hpf (NONE) 11/23/23 23:45 Urine Mucus 1+ /hpf 11/23/23 23:45 Vitals Last Vital Signs Temp 97.3 F L 11/27/23 07:44 Pulse 106 H 11/27/23 07:44 Resp 22 H 11/27/23 07:44 BP 142/84 11/27/23 07:44 Pulse Ox 94 11/27/23 04:00 O2 Del Method Room Air 11/27/23 04:00 O2 Flow Rate 2 11/26/23 20:00 Discharge Plan Discharge Patient Disposition: Hospice - Home Condition: Stable Prescriptions: New metoprolol tartrate 25 mg Tablet 12.5 mg PO BID@0900,2100 Qty: 30 0RF Lasix 20 mg tablet 20 mg PO DAILY PRN (Reason: edema) Qty: 14 0RF Continued (DME) Wheels with 4 wheels and a seat See Rx Instructions .Route .MEDSUPPLY Qty: 1 0RF Rx Instructions: As directed potassium chloride 10 mEq tablet extended release 10 meq PO DAILY Qty: 30 5RF naproxen [Naprosyn] 500 mg tablet 500 mg PO BID PRN (Reason: pain) Qty: 20 0RF Discontinued lisinopril 40 mg tablet See Rx Instructions .ROUTE .COMPLEX Qty: 90 3RF Dose Instruction: TAKE 1 TABLET BY MOUTH EVERY DAY Rx Instructions: TAKE 1 TABLET BY MOUTH EVERY DAY Discharge Orders: Discharge Order (Routine); Ordered 11/27/23 Ordered By: Pierre Cabrera Referrals: Andres Jordan MD [Primary Care Provider] - 12/04/23 11:20 am Discharge Diet: Cardiac Discharge Activity: Resume usual activity and Increase activity as tolerated Patient Instructions: Metoprolol (By mouth) (Lopressor, Toprol XL), Furosemide (By mouth) (Lasix), Heart Failure (DC), CHF Stoplight, Opioid Safety Activity Restrictions/Additional Instructions: Restrict fluid intake to less than 1500 cc, salt intake to less than 2 g daily. Advised to check his weight daily at home. Is advised that weight today would be the dry weight and if body weight increases by around 5 pounds, patient is to take an extra dose of Lasix daily till body weight comes down to weight today. If not able to come down to dry body weight in 1 week, then is to call cardiology office for further recommendations. Patient was counseled in detail to take medications regularly as prescribed. Discharge Attestations Time Spent in Discharge Care*: greater than 30 min Specific Discharge Activities: educating patient, educating and/or supporting family/caregiver, discussing with pcp/other providers, discussing with case packer and sealer/social workers/dc planners, documenting/other paperwork and evaluating patient/reviewing data Status at Discharge: Cognitive status at discharge: cognitively intact, Behavioral status at discharge: cooperative, Functional status at discharge: uses cane/walker, Overall status at discharge: patient is progressing back to baseline Quality Metrics Clinical Quality Measures [ No reported AMI, CVA or VTE this stay] Coding Level of Care Code 82072 Total time (in minutes) for Discharge: 60 Diagnoses CHF (congestive heart failure) I50.9 Severe aortic valve stenosis I35.0 Leg swelling M79.89 Hypokalemia E87.6 Severe pulmonary hypertension I27.20 Moderate mitral valve regurgitation I34.0 Goals of care, counseling/discussion Z71.89
--- NOTE | 2023-11-27 10:36 | PC.SOCIAL ---
IMM Update Pg. 2 of IMM Updated and reviewed with patient, who verbalized understanding. Copy provided.
[2023-11-27] MEDS: metoprolol tartrate 25 mg Tablet 12.5 MG PO (12:01)
[2023-11-27 12:48] VITALS: BP 128/50; PULSE 79
== END 2023-11-27 13:01 | disposition hospice, home (50) | DRG 640 ==
LOC: ER 17:01 → MEDSURG 17:44 → ER IP 17:59 → CSU 18:27
PROVIDERS: Admitting Provider Student in an Organized Health Care Education/Training Program; Emergency Provider Emergency Medicine; PCP Family Medicine; Visit Provider Student in an Organized Health Care Education/Training Program
DX: E87.6 Hypokalemia (principal); I50.43 Acute on chronic combined systolic (congestive) and diastolic (congestive) heart failure; I11.0 Hypertensive heart disease with heart failure; I08.3 Combined rheumatic disorders of mitral, aortic and tricuspid valves; Z85.828 Personal history of other malignant neoplasm of skin; F17.210 Nicotine dependence, cigarettes, uncomplicated; I27.20 Pulmonary hypertension, unspecified
CPT/HCPCS: 36415; 51702; 71045; 71046; 80048; 80053; 80061; 81001; 81003; 82607; 82746; 83036; 83540; 83550; 83735; 83880; 84100; 84132; 84145; 84443; 84484; 85025; 85378; 85610; 93005; 93306; 93970; 94664; 96372; 96376; 97110; 97116; 97162; 99285; A9270; J1630; J1650; J1940; J2270; P9046